=== PATIENT | male | born 1970 | race Caucasian/White ===

== ENCOUNTER 2022-07-13 06:27 | Emergency (ER) | payer OTHER ==
[~2022-07-13] VITALS: Ht 165.1 cm; Wt 67.0 kg
[2022-07-13] MEDS ORDERED: FLOMAX0.4 MG PO (12:55)
[2022-07-13] MEDS ORDERED: AZITHROMYCIN250 MG PO (12:56)
[2022-07-13] MEDS ORDERED: METFORMIN HCL500 MG PO (12:57)
== END 2022-07-13 12:45 | disposition left against medical advice (07) ==
LOC: ED 06:27
DX: R33.9 Retention of urine, unspecified (principal); F15.10 Other stimulant abuse, uncomplicated; J18.9 Pneumonia, unspecified organism; E11.65 Type 2 diabetes mellitus with hyperglycemia; I10 Essential (primary) hypertension
CPT/HCPCS: 36415; 74177; 80053; 81001; 82803; 83690; 85025; 96361; 99284-25; J1815; J7030; J7121; Q9967

== ENCOUNTER 2022-07-23 11:22 | Inpatient (IN) | payer OTHER ==
[~2022-07-23] VITALS: Ht 165.1 cm; Wt 67.4 kg
[~2022-07-23 11:22] MED LIST: AZITHROMYCIN250 MG PO; FLOMAX0.4 MG PO; METFORMIN HCL500 MG PO
--- OUTSIDE RECORDS SUMMARY | 2022-07-23 11:30 | XMS ---
PreManage Notification: TIGIST SMITH Security Reading Professor Events No recent Security Events currently on file CRITERIA MET - [facility] - 2 Visits in 30 Days CARE PROVIDERS -, Aldair Quinones DMD Dentist: Fashion Designer Current PHONE: [phone] Adalberto Bacon MD Family Medicine Current PHONE: Unknown SHASHI WALSH Family Medicine Current PHONE: Unknown Care Guidelines exist for the following facilities: [facility] ( 11/12/2018 ) Care History Medical/Surgical 04/06/2016 [facility] Care Coordination: This patient has been identified as having at least5 Emergency Departments visits in the 12 months immediately preceding the date these guidelines were entered. Patient requires education on appropriate ED usage. Emphasize the importance of using outpatient medical services for the treatment of chronic conditions. Please contact Community Health WorkerEarnestine at [phone] if patient is seen in ED These are guidelines and the provider should exercise clinical judgment when providing care. E.D. VISIT COUNT (12 MO.) [address] [facility] T[facility] NOTE: Visits indicate total known visits. ED/UCC VISIT TRACKING (12 MO.) 07/23/2022 11:23 [facility] [place] TYPE: Emergency COMPLAINT: - SOB / RT SIDE PAIN 07/13/2022 06:28 [facility] [place] TYPE: Emergency COMPLAINT: - SOB, ABD PAIN, FLANKS PAIN, URINATION PROBLEM DIAGNOSES: - Type 2 diabetes mellitus with hyperglycemia - Unspecified abdominal pain - Other stimulant abuse, uncomplicated - Pneumonia, unspecified organism - Retention of urine, unspecified - Essential (primary) hypertension 03/23/2022 17:51 [facility] [place] TYPE: Emergency DIAGNOSES: - Essential (primary) hypertension - Chest pain, unspecified - Hyperglycemia, unspecified - chest pain INPATIENT VISIT TRACKING (12 MO.) No inpatient visits to display in this time frame [email or web address]
[2022-07-26] MEDS ORDERED: LEVOFLOXACIN750 MG PO (12:03)
[2022-07-26] MEDS ORDERED: CEFPODOXIME PR200 MG PO (12:03)
[2022-07-26] MEDS ORDERED: METFORMIN HCL500 MG PO (12:04)
[2022-07-26] MEDS ORDERED: INSULIN GL100 UNIT/1 SUB-Q (12:05)
[2022-07-26] MEDS ORDERED: HUMALOG100 UNITS/ SUB-Q (12:05)
[2022-07-26] MEDS ORDERED: VITAMIN D325 MCG PO (12:07)
[2022-07-26] MEDS ORDERED: BLOOD GLUCOSE1 EAC5 MISC (12:59)
[2022-07-26] MEDS ORDERED: TEST N'GO1 EACH MISC (12:59)
[2022-07-26] MEDS ORDERED: LANCETS1 EACH MISC (12:59)
[2022-07-26] MEDS ORDERED: INSULIN SYRING1 EA27 MISC (13:00)
--- NOTE | 2022-07-26 18:58 | EKG ---
[facility] [address] [place] [address] Signed Sinus tachycardia Otherwise normal ECG No previous ECGs available Confirmed by Moy Moscoso MD () on 07/26/2022 6:57:54 PM Electronically Signed By: MOY MOSCOSO MD 07/26/22 1858 PATIENT NAME: TIGIST SMITH KRISTIE Electrocardiogram DATE OF : 68 PHYSICIAN: MOY MOSCOSO MD REPORT #: [id number] REPORT IS CONFIDENTIAL AND NOT TO BE RELEASED WITHOUT AUTHORIZATION
== END 2022-07-26 13:50 | disposition home or self-care (01) | DRG 871 ==
LOC: ED 11:22 → MS 13:11 → CCU 13:11 → MS 13:11
PROVIDERS: ADMIT Internal Medicine; ATTEND Family Medicine
PROC: 3E03329 Introduction of Other Anti-infective into Peripheral Vein, Percutaneous Approach (ICD-10-PCS; principal; 2022-07-23)
PROC: 0T9B70Z Drainage of Bladder with Drainage Device, Via Natural or Artificial Opening (ICD-10-PCS; 2022-07-23)
DX: A40.3 Sepsis due to Streptococcus pneumoniae (principal); J13 Pneumonia due to Streptococcus pneumoniae; F15.20 Other stimulant dependence, uncomplicated; I10 Essential (primary) hypertension; Z20.822 Contact with and (suspected) exposure to COVID-19; B19.20 Unspecified viral hepatitis C without hepatic coma; N40.1 Benign prostatic hyperplasia with lower urinary tract symptoms; R33.8 Other retention of urine; E11.40 Type 2 diabetes mellitus with diabetic neuropathy, unspecified; M79.7 Fibromyalgia; E11.65 Type 2 diabetes mellitus with hyperglycemia; R74.8 Abnormal levels of other serum enzymes; D50.9 Iron deficiency anemia, unspecified; E83.42 Hypomagnesemia; Z59.00 Homelessness unspecified; Z98.890 Other specified postprocedural states; Z79.84 Long term (current) use of oral hypoglycemic drugs; Z79.899 Other long term (current) drug therapy
CPT/HCPCS: 36415; 71045; 80048; 80053; 80061; 80076; 81001; 82306; 83036; 83605; 83690; 83735; 85025; 87040; 87070; 87205; 87449; 87502; 87522; 87899; 93005; 93010; 94667; 94668; 94760; 99406; A9270; C9803; J0696; J1650; J1815; J1956; J2250; J3475; J7030; J7121; U0003

== ENCOUNTER 2022-08-27 13:03 | Emergency (ER) | payer OTHER ==
[~2022-08-27] VITALS: Ht 165.1 cm; Wt 67.4 kg
[~2022-08-27 13:03] MED LIST changes: +BLOOD GLUCOSE1 EAC5 MISC; +CEFPODOXIME PR200 MG PO; +HUMALOG100 UNITS/ SUB-Q; +INSULIN GL100 UNIT/1 SUB-Q; +INSULIN SYRING1 EA27 MISC; +LANCETS1 EACH MISC; +LEVOFLOXACIN750 MG PO; +TEST N'GO1 EACH MISC; +VITAMIN D325 MCG PO
--- OUTSIDE RECORDS SUMMARY | 2022-08-27 13:11 | XMS ---
PreManage Notification: TIGIST SMITH Security Napkin Machine Operator Events No recent Security Events currently on file CRITERIA MET - [facility] - 2 Visits in 30 Days - 6 ED Visits in 6 Months CARE PROVIDERS -, Aldair Quinones DMD Dentist: Bumper And Painter Current PHONE: [phone] Adalberto Bacon MD Family Medicine Current PHONE: Unknown SHASHI WALSH Family Medicine Current PHONE: Unknown Care Guidelines exist for the following facilities: [facility] ( 11/12/2018 ) Care History Medical/Surgical 04/06/2016 [facility] Care Coordination: This patient has been identified as having at least5 Emergency Departments visits in the 12 months immediately preceding the date these guidelines were entered. Patient requires education on appropriate ED usage. Emphasize the importance of using outpatient medical services for the treatment of chronic conditions. Please contact Community Health WorkerEarnestine at [phone] if patient is seen in ED These are guidelines and the provider should exercise clinical judgment when providing care. E.D. VISIT COUNT (12 MO.) 3 [facility] T[facility] NOTE: Visits indicate total known visits. ED/UCC VISIT TRACKING (12 MO.) 08/27/2022 13:04 [facility] [place] TYPE: Emergency COMPLAINT: - CATHETER PROBLEM 08/18/2022 07:29 [facility] DIAGNOSES: - Unspecified complication of genitourinary prosthetic device, implant and graft, initial encounter - CATHETER PROBLEM ABD PAIN 08/04/2022 06:51 [facility] [place] TYPE: Emergency DIAGNOSES: - CATHETER PROBLEM - Breakdown (mechanical) of indwelling urethral catheter, initial encounter 07/23/2022 11:23 [facility] [place] TYPE: Emergency COMPLAINT: - SOB / RT SIDE PAIN 07/13/2022 06:28 [facility] [place] TYPE: Emergency COMPLAINT: - SOB, ABD PAIN, FLANKS PAIN, URINATION PROBLEM DIAGNOSES: - Unspecified abdominal pain - Other stimulant abuse, uncomplicated - Pneumonia, unspecified organism - Retention of urine, unspecified - Essential (primary) hypertension - Type 2 diabetes mellitus with hyperglycemia 03/23/2022 17:51 [facility] [place] TYPE: Emergency DIAGNOSES: - Chest pain, unspecified - Hyperglycemia, unspecified - chest pain - Essential (primary) hypertension INPATIENT VISIT TRACKING (12 MO.) 07/23/2022 13:11 [facility] [place] TYPE: Medical Surgical COMPLAINT: - SEPSIS/PNA DIAGNOSES: - Fibromyalgia - Unspecified viral hepatitis C without hepatic coma - Benign prostatic hyperplasia with lower urinary tract symptoms - Other retention of urine - Unspecified viral hepatitis C without hepatic coma - Sepsis due to Streptococcus pneumoniae - Other jail (current) drug therapy - Benign prostatic hyperplasia with lower urinary tract symptoms - Contact with and (suspected) exposure to COVID-19 - Essential (primary) hypertension - Other stimulant dependence, uncomplicated - Other retention of urine - Type 2 diabetes mellitus with hyperglycemia - Other specified postprocedural states - Type 2 diabetes mellitus with hyperglycemia - Other jail (current) drug therapy - Type 2 diabetes mellitus with diabetic neuropathy, unspecified - Homelessness unspecified - terminal operator (current) use of oral hypoglycemic drugs - Sepsis, unspecified organism - terminal operator (current) use of oral hypoglycemic drugs - Type 2 diabetes mellitus with diabetic neuropathy, unspecified - Other specified postprocedural states - Hypomagnesemia - Pneumonia due to Streptococcus pneumoniae - Hypomagnesemia - Iron deficiency anemia, unspecified - Abnormal levels of other serum enzymes - Iron deficiency anemia, unspecified - Pneumonia due to Streptococcus pneumoniae - Abnormal levels of other serum enzymes - Sepsis due to Streptococcus pneumoniae - Fibromyalgia - Homelessness unspecified - Contact with and (suspected) exposure to COVID-19 - Other stimulant dependence, uncomplicated - Essential (primary) hypertension [email or web address]
[2022-08-27 14:27] VITALS: BP 123/86
== END 2022-08-27 14:25 | disposition home or self-care (01) ==
LOC: ED 13:03
DX: E11.65 Type 2 diabetes mellitus with hyperglycemia (principal); I10 Essential (primary) hypertension; Z79.899 Other long term (current) drug therapy; Z79.4 Long term (current) use of insulin
CPT/HCPCS: 36415; 71045; 80053; 81001; 85025

== ENCOUNTER 2022-09-03 17:35 | Emergency (ER) | payer OTHER ==
[~2022-09-03] VITALS: Ht 165.1 cm; Wt 67.4 kg
--- OUTSIDE RECORDS SUMMARY | 2022-09-03 17:42 | XMS ---
PreManage Notification: TIGIST SMITH Security Interpretative Dancer Events No recent Security Events currently on file CRITERIA MET - 6 ED Visits in 6 Months - [facility] - 2 Visits in 30 Days CARE PROVIDERS -Aldair DMD Dentist: Mba Intern Current PHONE: [phone] RASHID BARCENAS Physician Reading Professor Current PHONE: Unknown Adalberto Bacon MD Family Medicine Current PHONE: Unknown SHASHI WALSH Family Medicine Current PHONE: Unknown Care Guidelines exist for the following facilities: [facility] ( 11/12/2018 ) Care History Medical/Surgical 04/06/2016 [facility] Care Coordination: This patient has been identified as having at least5 Emergency Departments visits in the 12 months immediately preceding the date these guidelines were entered. Patient requires education on appropriate ED usage. Emphasize the importance of using outpatient medical services for the treatment of chronic conditions. Please contact Community Health WorkerEarnestine at [phone] if patient is seen in ED These are guidelines and the provider should exercise clinical judgment when providing care. E.D. VISIT COUNT (12 MO.) 3 [facility] 4 [facility] TOTAL 7 NOTE: Visits indicate total known visits. ED/UCC VISIT TRACKING (12 MO.) 09/03/2022 17:[address] [facility] [facility] [place] TYPE: Emergency COMPLAINT: - WEAKNESS 08/27/2022 13:04 [facility] [place] TYPE: Emergency COMPLAINT: - CATHETER PROBLEM DIAGNOSES: - Essential (primary) hypertension - mechanical car checker (current) use of insulin - Other snf (current) drug therapy - Shortness of breath - Type 2 diabetes mellitus with hyperglycemia 08/18/2022 07:29 [facility] [place] TYPE: Emergency DIAGNOSES: - Unspecified complication of genitourinary prosthetic device, implant and graft, initial encounter - CATHETER PROBLEM ABD PAIN 08/04/2022 06:51 [facility] [place] TYPE: Emergency DIAGNOSES: - Breakdown (mechanical) of indwelling urethral catheter, initial encounter - CATHETER PROBLEM 07/23/2022 11:23 [facility] [place] TYPE: Emergency COMPLAINT: - SOB / RT SIDE PAIN 07/13/2022 06:28 [facility] [place] TYPE: Emergency COMPLAINT: - SOB, ABD PAIN, FLANKS PAIN, URINATION PROBLEM DIAGNOSES: - Essential (primary) hypertension - Other stimulant abuse, uncomplicated - Pneumonia, unspecified organism - Retention of urine, unspecified - Type 2 diabetes mellitus with hyperglycemia - Unspecified abdominal pain 03/23/2022 17:51 [facility] [place] TYPE: Emergency DIAGNOSES: - Chest pain, unspecified - Essential (primary) hypertension - Hyperglycemia, unspecified - chest pain INPATIENT VISIT TRACKING (12 MO.) 07/23/2022 13:[address] [facility] [facility] [place] TYPE: Medical Surgical COMPLAINT: - SEPSIS/PNA DIAGNOSES: - Abnormal levels of other serum enzymes - Abnormal levels of other serum enzymes - Benign prostatic hyperplasia with lower urinary tract symptoms - Benign prostatic hyperplasia with lower urinary tract symptoms - Contact with and (suspected) exposure to COVID-19 - Contact with and (suspected) exposure to COVID-19 - Essential (primary) hypertension - Essential (primary) hypertension - Fibromyalgia - Fibromyalgia - Homelessness unspecified - Homelessness unspecified - Hypomagnesemia - Hypomagnesemia - Iron deficiency anemia, unspecified - Iron deficiency anemia, unspecified - intermediate (current) use of oral hypoglycemic drugs - mechanical car checker (current) use of oral hypoglycemic drugs - Other snf (current) drug therapy - Other snf (current) drug therapy - Other retention of urine - Other retention of urine - Other specified postprocedural states - Other specified postprocedural states - Other stimulant dependence, uncomplicated - Other stimulant dependence, uncomplicated - Pneumonia due to Streptococcus pneumoniae - Pneumonia due to Streptococcus pneumoniae - Sepsis due to Streptococcus pneumoniae - Sepsis due to Streptococcus pneumoniae - Sepsis, unspecified organism - Type 2 diabetes mellitus with diabetic neuropathy, unspecified - Type 2 diabetes mellitus with diabetic neuropathy, unspecified - Type 2 diabetes mellitus with hyperglycemia - Type 2 diabetes mellitus with hyperglycemia - Unspecified viral hepatitis C without hepatic coma - Unspecified viral hepatitis C without hepatic coma [email or web address]
[2022-09-03] MEDS ORDERED: CEPHALEXIN500 M1 PO (19:25)
[2022-09-03 20:30] VITALS: BP 122/82
== END 2022-09-03 20:49 | disposition home or self-care (01) ==
LOC: ED 17:35
DX: E86.0 Dehydration (principal); N39.0 Urinary tract infection, site not specified; F15.90 Other stimulant use, unspecified, uncomplicated; Z76.5 Malingerer [conscious simulation]; I10 Essential (primary) hypertension; E11.40 Type 2 diabetes mellitus with diabetic neuropathy, unspecified; Z79.899 Other long term (current) drug therapy; Z79.84 Long term (current) use of oral hypoglycemic drugs
CPT/HCPCS: 36415; 71045; 80053; 81001; 83690; 85025; J7030; J7121

== ENCOUNTER 2022-12-28 16:40 | Emergency (ER) | payer OTHER ==
[~2022-12-28] VITALS: Ht 165.1 cm; Wt 62.9 kg
--- OUTSIDE RECORDS SUMMARY | ~2022-12-28 | XMS | Continuity of Care Document ---
Demographics + + + | Address | [address] | | | [place] [address] | + + + | Preferred Language | Unknown | + + + | Marital Status | | + + + | Cheondoism Affiliation | Unknown | + + + | Race | White | + + + | Ethnic Group | Not or | + + + Author + + + | Author | [facility] | + + + | Organization | [facility] | + + + | Address | [address] | | | [place] [address] | + + + | Phone | | + + + Care Team Providers + + + + | Care Lead Quality Control Technician Name | Role | Phone | + + + + Unavailable | Unavailable | + + + + Unavailable | Unavailable | + + + + Unavailable | Unavailable | + + + + Allergies No information. Encounters No information. Functional Status No information. Immunizations No information. Medications + + + + | date | description | facility | + + + + | 2022-09-03 00:00 | CEPHALEXIN | [facility] | + + + + | 2022-07-26 00:00 | Cholecalciferol (Vitamin | [facility] | | | D3) | | + + + + | 2022-07-26 00:00 | Cholecalciferol (Vitamin | [facility] | | | D3) | | + + + + | 2022-07-26 00:00 | Insulin Glargine-Yfgn | [facility] | + + + + | 2022-07-26 00:00 | Insulin Glargine-Yfgn | [facility] | + + + + | 2022-07-13 00:00 | AZITHROMYCIN | [facility] | + + + + | 2022-07-26 00:00 | CEFPODOXIME PROXETIL | [facility] | + + + + | 2022-07-26 00:00 | CEFPODOXIME PROXETIL | [facility] | + + + + | 2022-07-26 00:00 | LEVOFLOXACIN | [facility] | + + + + | 2022-07-26 00:00 | LEVOFLOXACIN | [facility] | + + + + | 2022-07-13 00:00 | METFORMIN HCL | [facility] | + + + + | 2022-07-13 00:00 | METFORMIN HCL | [facility] | + + + + | 2022-07-26 00:00 | METFORMIN HCL | [facility] | + + + + | 2022-07-26 00:00 | METFORMIN HCL | [facility] | + + + + | 2022-07-13 00:00 | TAMSULOSIN HCL | [facility] | + + + + | 2022-07-13 00:00 | TAMSULOSIN HCL | [facility] | + + + + | 2022-07-26 00:00 | INSULIN HUMAN LISPRO | [facility] | + + + + | 2022-07-26 00:00 | INSULIN HUMAN LISPRO | [facility] | + + + + Problems + + + + | date | description | facility | + + + + | 2022-07-13 00:00 | Uncontrolled diabetes | [facility] | | | mellitus | | + + + + | 2022-07-13 00:00 | Uncontrolled diabetes | [facility] | | | mellitus | | + + + + | 2022-07-13 00:00 | Methamphetamine abuse | [facility] | + + + + | 2022-07-13 00:00 | Methamphetamine abuse | [facility] | + + + + | 2022-07-13 00:00 | Pneumonia | [facility] | + + + + | 2022-07-13 00:00 | Pneumonia | [facility] | + + + + | 2022-07-13 00:00 | Abdominal cramps | [facility] | + + + + | 2022-07-13 00:00 | Abdominal cramps | [facility] | + + + + | 2022-07-13 00:00 | Retention of urine | [facility] | + + + + | 2022-07-13 00:00 | Retention of urine | [facility] | + + + + | 2022-07-23 00:00 | Poorly controlled diabetes | [facility] | | | mellitus | | + + + + | 2022-07-23 00:00 | Poorly controlled diabetes | [facility] | | | mellitus | | + + + + | 2022-07-23 00:00 | Acute pneumonia | [facility] | + + + + | 2022-07-23 00:00 | Acute pneumonia | [facility] | + + + + | 2022-09-03 00:00 | Dehydration | [facility] | + + + + | 2022-09-03 00:00 | Urinary tract infection | [facility] | + + + + Procedures No information. Results/Labs +--------+--------+ +---------+--------+---------+ | test | date | facility | value | unit | notes | +--------+--------+ +---------+--------+---------+ + + | Result panel 1 | + + + + + + + + + | | 2022-07-13 | [facility] | YELLOW | (missing) | (missing) | | (unavailable | 06:38:08 [facility] | | | + + + + + + + + + | Result panel 2 | + + + + + +---------+ + + | | 2022-07-13 | [facility] | CLEAR | (missing) | (missing) | | (unavailable | 06:38:08 [facility] | | | | + + + +---------+ + + + + | Result panel 3 | + + + + + + + + + | | 2022-07-13 | [facility] | >=1000 | (missing) | (missing) | | (unavailable | 06:38:08 [facility] | | | | + + + + + + + + + | Result panel 4 | + + + + + + + + + | | 2022-07-13 | [facility] | NEGATIVE | (missing) | (missing) | | (unavailable | 06:38:08 [facility] | | | | + + + + + + + + + | Result panel 5 | + + + + + + + + + | | 2022-07-13 | [facility] | NEGATIVE | (missing) | (missing) | | (unavailable | 06:38:08 | [facility] | [facility] | | | | + + + + + + + + + | Result panel 6 | + + + + + +---------+ + + | | 2022-07-13 | [facility] | 1.010 | (missing) | (missing) | | (unavailable | 06:38:08 [facility] | | | | + + + +---------+ + + + + | Result panel 7 | + + + + + + + + + | | 2022-07-13 | [facility] | TRACE-I | (missing) | (missing) | | (unavailable | 06:38:08 [facility] | | | | + + + + + + + + + | Result panel 8 | + + + + + +-------+ + + | | 2022-07-13 | [facility] | 6.5 | (missing) | (missing) | | (unavailable | 06:38:08 [facility] | | | | + + + +-------+ + + + + | Result panel 9 | + + + + + +-------+ + + | | 2022-07-13 | [facility] | 100 | (missing) | (missing) | | (unavailable | 06:38:08 | [facility] | | | | + + + +-------+ + + + + | Result panel 10 | + + + + + + + + + | | 2022-07-13 | [facility] | NORMAL | (missing) | (missing) | | (unavailable | 06:38:08 | [facility] | | | | + + + + + + + + + | Result panel 11 | + + + + + + + + + | | 2022-07-13 | [facility] | NEGATIVE | (missing) | (missing) | | (unavailable | 06:38:08 | [facility] | | | | + + + + + + + + + | Result panel 12 | + + + + + + + + + | | 2022-07-13 | [facility] | NEGATIVE | (missing) | (missing) | | (unavailable | 06:38:08 [facility] | | | + + + + + + + + + | Result panel 13 | + + + + + +-------+ + + | | 2022-07-13 | [facility] | 0-1 | (missing) | (missing) | | (unavailable | 06:38:08 | [facility] | | | | + + + +-------+ + + + + | Result panel 14 | + + + + + +-------+ + + | | 2022-07-13 | [facility] | 0-1 | (missing) | (missing) | | (unavailable | 06:38:08 | [facility] | | | | + + + +-------+ + + + + | Result panel 15 | + + + + + +-----+ + + | | 2022-07-13 | [facility] | 0 | (missing) | (missing) | | (unavailable | 06:38:08 [facility] | | | | + + + +-----+ + + + + | Result panel 16 | + + + + + + + + + | | 2022-07-13 | [facility] | NONE SEEN | (missing) | (missing) | | (unavailable | 06:38:08 | [facility] | | | | + + + + + + + + + | Result panel 17 | + + + + + + + + + | | 2022-07-13 | [facility] | NONE SEEN | (missing) | (missing) | | (unavailable | 06:38:08 | [facility] | | | | + + + + + + + + + | Result panel 18 | + + + + + + + + + | | 2022-07-13 | [facility] | NONE SEEN | (missing) | (missing) | | (unavailable | 06:38:08 | [facility] | | | | + + + + + + + + + | Result panel 19 | + + + + + +------+ + + | | 2022-07-13 | [facility] | No | (missing) | (missing) | | (unavailable | 06:38:08 [facility] | | | | + + + +------+ + + + + | Result panel 20 | + + + + + + + + + | | 2022-07-13 | [facility] | CLEAN CATCH | (missing) | (missing) | | (unavailable | 06:38:08 | [facility] | | | | + + + + + + + + + | Result panel 21 | + + + + + +--------+ + + | | 2022-07-13 | [facility] | 14.5 | (missing) | (missing) | | (unavailable | 07:01:08 [facility] | | | + + + +--------+ + + + + | Result panel 22 | + + + + + +--------+ + + | | 2022-07-13 | [facility] | 4.04 | (missing) | (missing) | | (unavailable | 07:01:08 | [facility] | | | + + + +--------+ + + + + | Result panel 23 | + + + + + +--------+ + + | | 2022-07-13 | [facility] | 10.3 | (missing) | (missing) | | (unavailable | 07:01:08 | [facility] | | | | + + + +--------+ + + + + | Result panel 24 | + + + + + +--------+ + + | | 2022-07-13 | [facility] | 32.9 | (missing) | (missing) | | (unavailable | 07:01:08 | [facility] | | | + + + +--------+ + + + + | Result panel 25 | + + + + + +--------+ + + | | 2022-07-13 | [facility] | 81.4 | (missing) | (missing) | | (unavailable | 07:01:08 [facility] | | | + + + +--------+ + + + + | Result panel 26 | + + + + + +--------+ + + | | 2022-07-13 | [facility] | 25.6 | (missing) | (missing) | | (unavailable | 07:01:08 [facility] | | | + + + +--------+ + + + + | Result panel 27 | + + + + + +--------+ + + | | 2022-07-13 | [facility] | 31.5 | (missing) | (missing) | | (unavailable | 07:01:08 [facility] | | | + + + +--------+ + + + + | Result panel 28 | + + + + + +--------+ + + | | 2022-07-13 | [facility] | 15.2 | (missing) | (missing) | | (unavailable | 07:01:08 [facility] | | | + + + +--------+ + + + + | Result panel 29 | + + + + + +-------+ + + | | 2022-07-13 | [facility] | 341 | (missing) | (missing) | | (unavailable | 07:01:08 [facility] | | | + + + +-------+ + + + + | Result panel 30 | + + + + + +--------+ + + | | 2022-07-13 | [facility] | 80.4 | (missing) | (missing) | | (unavailable | 07:01:08 [facility] | | | + + + +--------+ + + + + | Result panel 31 | + + + + + +--------+ + + | | 2022-07-13 | [facility] | 10.6 | (missing) | (missing) | | (unavailable | 07:01:08 [facility] | | | + + + +--------+ + + + + | Result panel 32 | + + + + + +-------+ + + | | 2022-07-13 | [facility] | 7.5 | (missing) | (missing) | | (unavailable | 07:01:08 [facility] | | | + + + +-------+ + + + + | Result panel 33 | + + + + + +-------+ + + | | 2022-07-13 | [facility] | 0.8 | (missing) | (missing) | | (unavailable | 07:01:08 [facility] | | | + + + +-------+ + + + + | Result panel 34 | + + + + + +-------+ + + | | 2022-07-13 | [facility] | 0.7 | (missing) | (missing) | | (unavailable | 07:01:08 [facility] | | | + + + +-------+ + + + + | Result panel 35 | + + + + + +-------+---------+ + | | 2022-07-13 | [facility] | 751 | mg/dL | (missing) | | (unavailable | 07:01:08 [facility] | | | | + + + +-------+---------+ + + + | Result panel 36 | + + + + + +------+---------+ + | | 2022-07-13 | [facility] | 32 | mg/dL | (missing) | | (unavailable | 07:01:08 [facility] | | | + + + +------+---------+ + + + | Result panel 37 | + + + + + +--------+---------+ + | | 2022-07-13 | [facility] | 1.58 | mg/dL | (missing) | | (unavailable | 07:01:08 [facility] | | | + + + +--------+---------+ + + + | Result panel 38 | + + + + + +------+ + + | | 2022-07-13 | [facility] | 52 | (missing) | (missing) | | (unavailable | 07:01:08 [facility] | | | + + + +------+ + + + + | Result panel 39 | + + + + + +---------+ + + | | 2022-07-13 | [facility] | 20.25 | (missing) | (missing) | | (unavailable | 07:01:08 [facility] | | | + + + +---------+ + + + + | Result panel 40 | + + + + + +-------+ + + | | 2022-07-13 | [facility] | 126 | (missing) | (missing) | | (unavailable | 07:01:08 [facility] | | | + + + +-------+ + + + + | Result panel 41 | + + + + + +-------+ + + | | 2022-07-13 | [facility] | 4.7 | (missing) | (missing) | | (unavailable | 07:01:08 | [facility] | | | + + + +-------+ + + + + | Result panel 42 | + + + + + +------+ + + | | 2022-07-13 | [facility] | 90 | (missing) | (missing) | | (unavailable | 07:01:08 [facility] | | | + + + +------+ + + + + | Result panel 43 | + + + + + +------+ + + | | 2022-07-13 | [facility] | 29 | (missing) | (missing) | | (unavailable | 07:01:08 [facility] | | | + + + +------+ + + + + | Result panel 44 | + + + + + +--------+ + + | | 2022-07-13 | [facility] | 11.7 | (missing) | (missing) | | (unavailable | 07:01:08 [facility] | | | + + + +--------+ + + + + | Result panel 45 | + + + + + +-------+---------+ + | | 2022-07-13 | [facility] | 9.2 | mg/dL | (missing) | | (unavailable | 07:01:08 [facility] | | | + + + +-------+---------+ + + + | Result panel 46 | + + + + + +-------+ + + | | 2022-07-13 | [facility] | 8.2 | (missing) | (missing) | | (unavailable | 07:01:08 [facility] | | | + + + +-------+ + + + + | Result panel 47 | + + + + + +-------+ + + | | 2022-07-13 | [facility] | 2.2 | (missing) | (missing) | | (unavailable | 07:01:08 [facility] | | | + + + +-------+ + + + + | Result panel 48 | + + + + + +-------+ + + | | 2022-07-13 | [facility] | 6.0 | (missing) | (missing) | | (unavailable | 07:01:08 [facility] | | | + + + +-------+ + + + + | Result panel 49 | + + + + + +--------+ + + | | 2022-07-13 | [facility] | 0.37 | (missing) | (missing) | | (unavailable | 07:01:08 [facility] | | | + + + +--------+ + + + + | Result panel 50 | + + + + + +-------+ + + | | 2022-07-13 | [facility] | 0.3 | (missing) | (missing) | | (unavailable | 07:01:08 [facility] | | | + + + +-------+ + + + + | Result panel 51 | + + + + + +------+ + + | | 2022-07-13 | [facility] | 16 | (missing) | (missing) | | (unavailable | 07:01:08 [facility] | | | + + + +------+ + + + + | Result panel 52 | + + + + + +------+ + + | | 2022-07-13 | [facility] | 20 | (missing) | (missing) | | (unavailable | 07:01:08 [facility] | | | + + + +------+ + + + + | Result panel 53 | + + + + + +-------+ + + | | 2022-07-13 | [facility] | 187 | (missing) | (missing) | | (unavailable | 07:01:08 [facility] | | | + + + +-------+ + + + + | Result panel 54 | + + + + + +-------+ + + | | 2022-07-13 | [facility] | 414 | (missing) | (missing) | | (unavailable | 07:01:08 [facility] | | | + + + +-------+ + + + + | Result panel 55 | + + + + + +---------+ + + | | 2022-07-13 | [facility] | 7.389 | (missing) | (missing) | | (unavailable | 07:34:07 [facility] | | | | + + + +---------+ + + + + | Result panel 56 | + + + + + +---------+ + + | | 2022-07-13 | [facility] | 7.389 | (missing) | (missing) | | (unavailable | 07:34:08 [facility] | | | + + + +---------+ + + + + | Result panel 57 | + + + + + +---------+ + + | | 2022-07-13 | [facility] | > 500 | (missing) | (missing) | | (unavailable | 10:11:08 | [facility] | | | + + + +---------+ + + + + | Result panel 58 | + + + + + +-------+ + + | | 2022-07-23 | [facility] | 414 | (missing) | (missing) | | (unavailable | 11:30:07 [facility] | | | | + + + +-------+ + + + + | Result panel 59 | + + + + + +-------+ + + | | 2022-07-23 | [facility] | 0.7 | (missing) | (missing) | | (unavailable | 11:30:07 [facility] | | | + + + +-------+ + + + + | Result panel 60 | + + + + + +--------+ + + | | 2022-07-23 | [facility] | 13.8 | (missing) | (missing) | | (unavailable | 11:30:07 [facility] | | | + + + +--------+ + + + + | Result panel 61 | + + + + + + + + + | | 2022-07-23 | [facility] | NEGATIVE | (missing) | (missing) | | (unavailable | 11:32:07 [facility] | | | + + + + + + + + + | Result panel 62 | + + + + + + + + + | | 2022-07-23 | [facility] | NEGATIVE | (missing) | (missing) | | (unavailable | 11:32:07 [facility] | | | + + + + + + + + + | Result panel 63 | + + + + + + + + + | | 2022-07-23 | [facility] | NEGATIVE | (missing) | (missing) | | (unavailable | 11:32:07 [facility] | | | + + + + + + + + + | Result panel 64 | + + + + + + + + + | | 2022-07-23 | [facility] | NEGATIVE | (missing) | (missing) | | (unavailable | 11:32:07 [facility] | | | + + + + + + + + + | Result panel 65 | + + + + + + + + + | | 2022-07-23 | [facility] | YELLOW | (missing) | (missing) | | (unavailable | 11:50:07 [facility] | | | + + + + + + + + + | Result panel 66 | + + + + + + + + + | | 2022-07-23 | [facility] | CLOUDY | (missing) | (missing) | | (unavailable | 11:50:07 [facility] | | | + + + + + + + + + | Result panel 67 | + + + + + + + + + | | 2022-07-23 | [facility] | >=1000 | (missing) | (missing) | | (unavailable | 11:50:07 [facility] | | | + + + + + + + + + | Result panel 68 | + + + + + + + + + | | 2022-07-23 | [facility] | NEGATIVE | (missing) | (missing) | | (unavailable | 11:50:07 [facility] | | | + + + + + + + + + | Result panel 69 | + + + + + + + + + | | 2022-07-23 | [facility] | NEGATIVE | (missing) | (missing) | | (unavailable | 11:50:07 [facility] | | | + + + + + + + + + | Result panel 70 | + + + + + +---------+ + + | | 2022-07-23 | [facility] | 1.010 | (missing) | (missing) | | (unavailable | 11:50:07 [facility] | | | + + + +---------+ + + + + | Result panel 71 | + + + + + +---------+ + + | | 2022-07-23 | [facility] | SMALL | (missing) | (missing) | | (unavailable | 11:50:07 [facility] | | | | + + + +---------+ + + + + | Result panel 72 | + + + + + +-------+ + + | | 2022-07-23 | [facility] | 7.0 | (missing) | (missing) | | (unavailable | 11:50:07 [facility] | | | + + + +-------+ + + + + | Result panel 73 | + + + + + +-------+ + + | | 2022-07-23 | [facility] | 100 | (missing) | (missing) | | (unavailable | 11:50:07 [facility] | | | + + + +-------+ + + + + | Result panel 74 | + + + + + + + + + | | 2022-07-23 | [facility] | NORMAL | (missing) | (missing) | | (unavailable | 11:50:07 [facility] | | | + + + + + + + + + | Result panel 75 | + + + + + + + + + | | 2022-07-23 | [facility] | NEGATIVE | (missing) | (missing) | | (unavailable | 11:50:07 [facility] | | | + + + + + + + + + | Result panel 76 | + + + + + + + + + | | 2022-07-23 | [facility] | NEGATIVE | (missing) | (missing) | | (unavailable | 11:50:07 [facility] | | | + + + + + + + + + | Result panel 77 | + + + + + +-------+ + + | | 2022-07-23 | [facility] | 0-1 | (missing) | (missing) | | (unavailable | 11:50:07 [facility] | | | + + + +-------+ + + + + | Result panel 78 | + + + + + +-------+ + + | | 2022-07-23 | [facility] | 0-1 | (missing) | (missing) | | (unavailable | 11:50:07 [facility] | | | + + + +-------+ + + + + | Result panel 79 | + + + + + +-----+ + + | | 2022-07-23 | [facility] | 0 | (missing) | (missing) | | (unavailable | 11:50:07 [facility] | | | + + + +-----+ + + + + | Result panel 80 | + + + + + + + + + | | 2022-07-23 | [facility] | NONE SEEN | (missing) | (missing) | | (unavailable | 11:50:07 [facility] | | | + + + + + + + + + | Result panel 81 | + + + + + +--------+ + + | | 2022-07-23 | [facility] | RARE | (missing) | (missing) | | (unavailable | 11:50:07 [facility] | | | + + + +--------+ + + + + | Result panel 82 | + + + + + + + + + | | 2022-07-23 | [facility] | NONE SEEN | (missing) | (missing) | | (unavailable | 11:50:07 [facility] | | | + + + + + + + + + | Result panel 83 | + + + + + +------+ + + | | 2022-07-23 | [facility] | No | (missing) | (missing) | | (unavailable | 11:50:07 [facility] | | | + + + +------+ + + + + | Result panel 84 | + + + + + +--------+ + + | | 2022-07-23 | [facility] | CATH | (missing) | (missing) | | (unavailable | 11:50:07 [facility] | | | + + + +--------+ + + + + | Result panel 85 | + + + + + + + + + | | 2022-07-23 | [facility] | Negative | (missing) | (missing) | | (unavailable | 11:50:07 [facility] | | | + + + + + + + + + | Result panel 86 | + + + + + + + + + | | 2022-07-23 | [facility] | Negative | (missing) | (missing) | | (unavailable | 11:50:07 [facility] | | | + + + + + + + + + | Result panel 87 | + + + + + +-----+ + + | | 2022-07-24 | [facility] | 1 | (missing) | (missing) | | (unavailable | 05:07:07 [facility] | | | | + + + +-----+ + + + + | Result panel 88 | + + + + + +-----+ + + | | 2022-07-24 | [facility] | 1 | (missing) | (missing) | | (unavailable | 05:07:07 | [facility] | | | | + + + +-----+ + + + + | Result panel 89 | + + + + + +-------+---------+ + | | 2022-07-24 | [facility] | 112 | mg/dL | (missing) | | (unavailable | 05:07:07 | [facility] | | | | + + + +-------+---------+ + + + | Result panel 90 | + + + + + +------+ + + | | 2022-07-24 | [facility] | 49 | (missing) | (missing) | | (unavailable | 05:07:07 | [facility] | | | | + + + +------+ + + + + | Result panel 91 | + + + + + +---------+ + + | | 2022-07-24 | [facility] | 63.00 | (missing) | (missing) | | (unavailable | 05:07:07 | [facility] | | | | + + + +---------+ + + + + | Result panel 92 | + + + + + +------+---------+ + | | 2022-07-24 | [facility] | 53 | mg/dL | (missing) | | (unavailable | 05:07:07 | [facility] | | | | + + + +------+---------+ + + + | Result panel 93 | + + + + + +-------+ + + | | 2022-07-24 | [facility] | 2.3 | (missing) | (missing) | | (unavailable | 05:07:07 | [facility] | | | | + + + +-------+ + + + + | Result panel 94 | + + + + + +-----+ + + | | 2022-07-24 | [facility] | 9 | (missing) | (missing) | | (unavailable | 05:07:07 | [facility] | | | | + + + +-----+ + + + + | Result panel 95 | + + + + + +------+ + + | | 2022-07-24 | [facility] | 48 | (missing) | (missing) | | (unavailable | 05:07:07 | [facility] | | | | + + + +------+ + + + + | Result panel 96 | + + + + + +------+ + + | | 2022-07-24 | [facility] | 12 | (missing) | (missing) | | (unavailable | 05:07:07 | [facility] | | | | + + + +------+ + + + + | Result panel 97 | + + + + + + + + + | | 2022-07-24 | [facility] | Negative | (missing) | (missing) | | (unavailable | 05:07:07 | [facility] | | | | + + + + + + + + + | Result panel 98 | + + + + + + + + + | | 2022-07-24 | [facility] | Not | (missing) | (missing) | | (unavailable | 05:07:07 | [facility] | Detected | | | | ) | | [facility] | | | | + + + + + + + + + | Result panel 99 | + + + + + + + + + | | 2022-07-24 | [facility] | Not | (missing) | (missing) | | (unavailable | 05:07:07 | [facility] Detected [facility] ) | | [facility] | | | | + + + + + + + + + | Result panel 100 | + + + + + + + + + | | 2022-07-24 | [facility] | Not | (missing) | (missing) | | (unavailable | 05:07:07 | [facility] Detected | [facility] | ) | | [facility] | | | | + + + + + + + + + | Result panel 101 | + + + + + +------+ + + | | 2022-07-25 | [facility] | 84 | (missing) | (missing) | | (unavailable | 05:19:07 | [facility] | | | | + + + +------+ + + + + | Result panel 102 | + + + + + +------+ + + | | 2022-07-25 | [facility] | 10 | (missing) | (missing) | | (unavailable | 05:19:07 | [facility] | | | | + + + +------+ + + + + | Result panel 103 | + + + + + +-----+ + + | | 2022-07-25 | [facility] | 4 | (missing) | (missing) | | (unavailable | 05:19:07 | [facility] | | | | [facility] | | | | + + + +-----+ + + + + | Result panel 104 | + + + + + +-----+ + + | | 2022-07-25 | [facility] | 2 | (missing) | (missing) | | (unavailable | 05:19:07 | [facility] | | | | + + + +-----+ + + + + | Result panel 105 | + + + + + +--------+ + + | | 2022-07-26 | [facility] | 15.3 | (missing) | (missing) | | (unavailable | 05:14:07 | [facility] | | | | + + + +--------+ + + + + | Result panel 106 | + + + + + +--------+ + + | | 2022-07-26 | [facility] | 3.78 | (missing) | (missing) | | (unavailable | 05:14:07 | [facility] | | | | + + + +--------+ + + + + | Result panel 107 | + + + + + +-------+ + + | | 2022-07-26 | [facility] | 9.6 | (missing) | (missing) | | (unavailable | 05:14:07 | [facility] | | | | + + + +-------+ + + + + | Result panel 108 | + + + + + +--------+ + + | | 2022-07-26 | [facility] | 30.1 | (missing) | (missing) | | (unavailable | 05:14:07 | [facility] | | | | + + + +--------+ + + + + | Result panel 109 | + + + + + +--------+ + + | | 2022-07-26 | [facility] | 79.6 | (missing) | (missing) | | (unavailable | 05:14:07 | [facility] | | | + + + +--------+ + + + + | Result panel 110 | + + + + + +--------+ + + | | 2022-07-26 | [facility] | 25.3 | (missing) | (missing) | | (unavailable | 05:14:07 | [facility] | | | | + + + +--------+ + + + + | Result panel 111 | + + + + + +--------+ + + | | 2022-07-26 | [facility] | 31.8 | (missing) | (missing) | | (unavailable | 05:14:07 | [facility] | | | | + + + +--------+ + + + + | Result panel 112 | + + + + + +--------+ + + | | 2022-07-26 | [facility] | 15.6 | (missing) | (missing) | | (unavailable | 05:14:07 | [facility] | | | + + + +--------+ + + + + | Result panel 113 | + + + + + +-------+ + + | | 2022-07-26 | [facility] | 272 | (missing) | (missing) | | (unavailable | 05:14:07 | [facility] | | | | + + + +-------+ + + + + | Result panel 114 | + + + + + +--------+ + + | | 2022-07-26 | [facility] | 76.9 | (missing) | (missing) | | (unavailable | 05:14:07 | [facility] | | | | + + + +--------+ + + + + | Result panel 115 | + + + + + +--------+ + + | | 2022-07-26 | [facility] | 14.9 | (missing) | (missing) | | (unavailable | 05:14:07 | [facility] | | | + + + +--------+ + + + + | Result panel 116 | + + + + + +-------+ + + | | 2022-07-26 | [facility] | 7.0 | (missing) | (missing) | | (unavailable | 05:14:07 | [facility] | | | + + + +-------+ + + + + | Result panel 117 | + + + + + +-------+ + + | | 2022-07-26 | [facility] | 1.0 | (missing) | (missing) | | (unavailable | 05:14:07 | [facility] | | | | + + + +-------+ + + + + | Result panel 118 | + + + + + +-------+ + + | | 2022-07-26 | [facility] | 0.2 | (missing) | (missing) | | (unavailable | 05:14:07 | [facility] | | | | + + + +-------+ + + + + | Result panel 119 | + + + + + +-------+---------+ + | | 2022-07-26 | [facility] | 116 | mg/dL | (missing) | | (unavailable | 05:14:07 | [facility] | | | | + + + +-------+---------+ + + + | Result panel 120 | + + + + + +------+---------+ + | | 2022-07-26 | [facility] | 21 | mg/dL | (missing) | | (unavailable | 05:14:07 | [facility] | | | | + + + +------+---------+ + + + | Result panel 121 | + + + + + +--------+---------+ + | | 2022-07-26 | [facility] | 1.00 | mg/dL | (missing) | | (unavailable | 05:14:07 | [facility] | | | | + + + +--------+---------+ + + + | Result panel 122 | + + + + + +------+ + + | | 2022-07-26 | [facility] | 91 | (missing) | (missing) | | (unavailable | 05:14:07 | [facility] | | | | + + + +------+ + + + + | Result panel 123 | + + + + + +---------+ + + | | 2022-07-26 | [facility] | 21.00 | (missing) | (missing) | | (unavailable | 05:14:07 | [facility] | | | | + + + +---------+ + + + + | Result panel 124 | + + + + + +-------+ + + | | 2022-07-26 | [facility] | 134 | (missing) | (missing) | | (unavailable | 05:14:07 | [facility] | | | | + + + +-------+ + + + + | Result panel 125 | + + + + + +-------+ + + | | 2022-07-26 | [facility] | 4.1 | (missing) | (missing) | | (unavailable | 05:14:07 | [facility] | | | | + + + +-------+ + + + + | Result panel 126 | + + + + + +-------+ + + | | 2022-07-26 | [facility] | 101 | (missing) | (missing) | | (unavailable | 05:14:07 | [facility] | | | | + + + +-------+ + + + + | Result panel 127 | + + + + + +------+ + + | | 2022-07-26 | [facility] | 25 | (missing) | (missing) | | (unavailable | 05:14:07 | [facility] | | | | + + + +------+ + + + + | Result panel 128 | + + + + + +--------+ + + | | 2022-07-26 | [facility] | 12.1 | (missing) | (missing) | | (unavailable | 05:14:07 | [facility] | | | | + + + +--------+ + + + + | Result panel 129 | + + + + + +-------+---------+ + | | 2022-07-26 | [facility] | 9.0 | mg/dL | (missing) | | (unavailable | 05:14:07 | [facility] | | | | + + + +-------+---------+ + + + | Result panel 130 | + + + + + +-------+---------+ + | | 2022-07-26 | [facility] | 1.7 | mg/dL | (missing) | | (unavailable | 05:14:07 | [facility] | | | | + + + +-------+---------+ + + + | Result panel 131 | + + + + + +-------+ + + | | 2022-07-26 | [facility] | 7.3 | (missing) | (missing) | | (unavailable | 05:14:07 | [facility] | | | | + + + +-------+ + + + + | Result panel 132 | + + + + + +-------+ + + | | 2022-07-26 | [facility] | 1.4 | (missing) | (missing) | | (unavailable | 05:14:07 | [facility] | | | | + + + +-------+ + + + + | Result panel 133 | + + + + + +-------+ + + | | 2022-07-26 | [facility] | 5.9 | (missing) | (missing) | | (unavailable | 05:14:07 | [facility] | | | | + + + +-------+ + + + + | Result panel 134 | + + + + + +--------+ + + | | 2022-07-26 | [facility] | 0.24 | (missing) | (missing) | | (unavailable | 05:14:07 | [facility] | | | | + + + +--------+ + + + + | Result panel 135 | + + + + + +-------+ + + | | 2022-07-26 | [facility] | 0.2 | (missing) | (missing) | | (unavailable | 05:14:07 | [facility] | | | | + + + +-------+ + + + + | Result panel 136 | + + + + + +-------+---------+ + | | 2022-07-26 | [facility] | 0.1 | mg/dL | (missing) | | (unavailable | 05:14:07 | [facility] | | | | + + + +-------+---------+ + + + | Result panel 137 | + + + + + +-------+ + + | | 2022-07-26 | [facility] | 0.1 | (missing) | (missing) | | (unavailable | 05:14:07 | [facility] | | | | + + + +-------+ + + + + | Result panel 138 | + + + + + +------+ + + | | 2022-07-26 | [facility] | 32 | (missing) | (missing) | | (unavailable | 05:14:07 | [facility] | | | | + + + +------+ + + + + | Result panel 139 | + + + + + +------+ + + | | 2022-07-26 | [facility] | 29 | (missing) | (missing) | | (unavailable | 05:14:07 | [facility] | | | | + + + +------+ + + + + | Result panel 140 | + + + + + +-------+ + + | | 2022-07-26 | [facility] | 275 | (missing) | (missing) | | (unavailable | 05:14:07 | [facility] | | | | + + + +-------+ + + + + | Result panel 141 | + + + + + +-------+ + + | | 2022-07-26 | [facility] | 120 | (missing) | (missing) | | (unavailable | 11:34:07 | [facility] | | | | + + + +-------+ + + + + | Result panel 142 | + + + + + +-------+ + + | | 2022-08-27 | [facility] | 8.6 | (missing) | (missing) | | (unavailable | 13:30:07 | [facility] | | | | + + + +-------+ + + + + | Result panel 143 | + + + + + +-------+ + + | | 2022-08-27 | [facility] | 1.8 | (missing) | (missing) | | (unavailable | 13:30:07 | [facility] | | | | + + + +-------+ + + + + | Result panel 144 | + + + + + +-------+ + + | | 2022-08-27 | [facility] | 6.8 | (missing) | (missing) | | (unavailable | 13:30:07 | [facility] | | | + + + +-------+ + + + + | Result panel 145 | + + + + + +--------+ + + | | 2022-08-27 | [facility] | 0.26 | (missing) | (missing) | | (unavailable | 13:30:07 | [facility] | | | + + + +--------+ + + + + | Result panel 146 | + + + + + +-------+ + + | | 2022-08-27 | [facility] | 0.2 | (missing) | (missing) | | (unavailable | 13:30:07 | [facility] | | | + + + +-------+ + + + + | Result panel 147 | + + + + + +------+ + + | | 2022-08-27 | [facility] | 13 | (missing) | (missing) | | (unavailable | 13:30:07 | [facility] | | | | + + + +------+ + + + + | Result panel 148 | + + + + + +------+ + + | | 2022-08-27 | [facility] | 20 | (missing) | (missing) | | (unavailable | 13:30:07 | [facility] | | | | + + + +------+ + + + + | Result panel 149 | + + + + + +-------+ + + | | 2022-08-27 | [facility] | 206 | (missing) | (missing) | | (unavailable | 13:30:07 | [facility] | | | + + + +-------+ + + + + | Result panel 150 | + + + + + +--------+ + + | | 2022-08-27 | [facility] | 11.7 | (missing) | (missing) | | (unavailable | 13:30:07 | [facility] | | | + + + +--------+ + + + + | Result panel 151 | + + + + + +--------+ + + | | 2022-08-27 | [facility] | 4.33 | (missing) | (missing) | | (unavailable | 13:30:07 | [facility] | | | + + + +--------+ + + + + | Result panel 152 | + + + + + +--------+ + + | | 2022-08-27 | [facility] | 10.6 | (missing) | (missing) | | (unavailable | 13:30:07 | [facility] | | | + + + +--------+ + + + + | Result panel 153 | + + + + + +--------+ + + | | 2022-08-27 | [facility] | 33.7 | (missing) | (missing) | | (unavailable | 13:30:07 | [facility] | | | + + + +--------+ + + + + | Result panel 154 | + + + + + +--------+ + + | | 2022-08-27 | [facility] | 77.8 | (missing) | (missing) | | (unavailable | 13:30:07 | [facility] | | | + + + +--------+ + + + + | Result panel 155 | + + + + + +--------+ + + | | 2022-08-27 | [facility] | 24.5 | (missing) | (missing) | | (unavailable | 13:30:07 [facility] | | | + + + +--------+ + + + + | Result panel 156 | + + + + + +--------+ + + | | 2022-08-27 | [facility] | 31.4 | (missing) | (missing) | | (unavailable | 13[facility]30:07 [facility] | | | + + + +--------+ + + + + | Result panel 157 | + + + + + +--------+ + + | | 2022-08-27 | [facility] | 16.3 | (missing) | (missing) | | (unavailable | 13:30:07 | [facility] | | | + + + +--------+ + + + + | Result panel 158 | + + + + + +-------+ + + | | 2022-08-27 | [facility] | 270 | (missing) | (missing) | | (unavailable | 13:30:07 | [facility] | | | + + + +-------+ + + + + | Result panel 159 | + + + + + +--------+ + + | | 2022-08-27 | [facility] | 77.5 | (missing) | (missing) | | (unavailable | 13:30:07 | [facility] | | | + + + +--------+ + + + + | Result panel 160 | + + + + + +--------+ + + | | 2022-08-27 | [facility] | 16.3 | (missing) | (missing) | | (unavailable | 13:30:07 | [facility] | | | + + + +--------+ + + + + | Result panel 161 | + + + + + +-------+ + + | | 2022-08-27 | [facility] | 4.9 | (missing) | (missing) | | (unavailable | 13:30:07 | [facility] | | | + + + +-------+ + + + + | Result panel 162 | + + + + + +-------+ + + | | 2022-08-27 | [facility] | 0.6 | (missing) | (missing) | | (unavailable | 13:30:07 | [facility] | | | | + + + +-------+ + + + + | Result panel 163 | + + + + + +-------+ + + | | 2022-08-27 | [facility] | 0.7 | (missing) | (missing) | | (unavailable | 13:30:07 [facility] | | | + + + +-------+ + + + + | Result panel 164 | + + + + + + + + + | | 2022-08-27 | [facility] | YELLOW | (missing) | (missing) | | (unavailable | 13:30:07 | [facility] | | | | + + + + + + + + + | Result panel 165 | + + + + + +---------+ + + | | 2022-08-27 | [facility] | CLEAR | (missing) | (missing) | | (unavailable | 13:30:07 | [facility] | | | | + + + +---------+ + + + + | Result panel 166 | + + + + + +---------+ + + | | 2022-08-27 | [facility] | LARGE | (missing) | (missing) | | (unavailable | 13:30:07 [facility] | | | | + + + +---------+ + + + + | Result panel 167 | + + + + + + + + + | | 2022-08-27 | [facility] | NEGATIVE | (missing) | (missing) | | (unavailable | 13:30:07 [facility] | | | | + + + + + + + + + | Result panel 168 | + + + + + + + + + | | 2022-08-27 | [facility] | NEGATIVE | (missing) | (missing) | | (unavailable | 13:30:07 | [facility] | | | | + + + + + + + + + | Result panel 169 | + + + + + +---------+ + + | | 2022-08-27 | [facility] | 1.020 | (missing) | (missing) | | (unavailable | 13:30:07 | [facility] | | | | + + + +---------+ + + + + | Result panel 170 | + + + + + +---------+ + + | | 2022-08-27 | [facility] | LARGE | (missing) | (missing) | | (unavailable | 13:30:07 | [facility] | | | | + + + +---------+ + + + + | Result panel 171 | + + + + + +-------+ + + | | 2022-08-27 | [facility] | 6.5 | (missing) | (missing) | | (unavailable | 13:30:07 | [facility] | | | | + + + +-------+ + + + + | Result panel 172 | + + + + + +---------+ + + | | 2022-08-27 | [facility] | >=300 | (missing) | (missing) | | (unavailable | 13:30:07 [facility] | | | | + + + +---------+ + + + + | Result panel 173 | + + + + + +-------+ + + | | 2022-08-27 | [facility] | 1.0 | (missing) | (missing) | | (unavailable | 13:30:07 [facility] | | | | + + + +-------+ + + + + | Result panel 174 | + + + + + + + + + | | 2022-08-27 | [facility] | NEGATIVE | (missing) | (missing) | | (unavailable | 13:30:07 [facility] | | | | + + + + + + + + + | Result panel 175 | + + + + + +---------+ + + | | 2022-08-27 | [facility] | TRACE | (missing) | (missing) | | (unavailable | 13:30:07 [facility] | | | | + + + +---------+ + + + + | Result panel 176 | + + + + + +---------+ + + | | 2022-08-27 | [facility] | 21-40 | (missing) | (missing) | | (unavailable | 13:30:07 [facility] | | | | + + + +---------+ + + + + | Result panel 177 | + + + + + +-------+ + + | | 2022-08-27 | [facility] | 0-1 | (missing) | (missing) | | (unavailable | 13:30:07 [facility] | | | | + + + +-------+ + + + + | Result panel 178 | + + + + + +-----+ + + | | 2022-08-27 | [facility] | 0 | (missing) | (missing) | | (unavailable | 13:30:07 [facility] | | | | + + + +-----+ + + + + | Result panel 179 | + + + + + + + + + | | 2022-08-27 | [facility] | NONE SEEN | (missing) | (missing) | | (unavailable | 13:30:07 [facility] | | | | + + + + + + + + + | Result panel 180 | + + + + + + + + + | | 2022-08-27 | [facility] | NONE SEEN | (missing) | (missing) | | (unavailable | 13:30:07 [facility] | | | | + + + + + + + + + | Result panel 181 | + + + + + + + + + | | 2022-08-27 | [facility] | NONE SEEN | (missing) | (missing) | | (unavailable | 13:30:07 | [facility] | | | | + + + + + + + + + | Result panel 182 | + + + + + +------+ + + | | 2022-08-27 | [facility] | No | (missing) | (missing) | | (unavailable | 13:30:07 [facility] | | | | + + + +------+ + + + + | Result panel 183 | + + + + + + + + + | | 2022-08-27 | [facility] | CLEAN CATCH | (missing) | (missing) | | (unavailable | 13:30:07 | [facility] | | | | + + + + + + + + + | Result panel 184 | + + + + + +-------+---------+ + | | 2022-08-27 | [facility] | 418 | mg/dL | (missing) | | (unavailable | 13:30:07 [facility] | | | | + + + +-------+---------+ + + + | Result panel 185 | + + + + + +------+---------+ + | | 2022-08-27 | [facility] | 19 | mg/dL | (missing) | | (unavailable | 13:30:07 [facility] | | | | + + + +------+---------+ + + + | Result panel 186 | + + + + + +--------+---------+ + | | 2022-08-27 | [facility] | 1.25 | mg/dL | (missing) | | (unavailable | 13:30:07 [facility] | | | | + + + +--------+---------+ + + + | Result panel 187 | + + + + + +------+ + + | | 2022-08-27 | [facility] | 69 | (missing) | (missing) | | (unavailable | 13:30:07 [facility] | | | | + + + +------+ + + + + | Result panel 188 | + + + + + +---------+ + + | | 2022-08-27 | [facility] | 15.20 | (missing) | (missing) | | (unavailable | 13:30:07 [facility] | | | | + + + +---------+ + + + + | Result panel 189 | + + + + + +-------+ + + | | 2022-08-27 | [facility] | 127 | (missing) | (missing) | | (unavailable | 13:30:07 [facility] | | | | + + + +-------+ + + + + | Result panel 190 | + + + + + +-------+ + + | | 2022-08-27 | [facility] | 4.8 | (missing) | (missing) | | (unavailable | 13:30:07 [facility] | | | | + + + +-------+ + + + + | Result panel 191 | + + + + + +------+ + + | | 2022-08-27 | [facility] | 93 | (missing) | (missing) | | (unavailable | 13:30:07 [facility] | | | | + + + +------+ + + + + | Result panel 192 | + + + + + +------+ + + | | 2022-08-27 | [facility] | 27 | (missing) | (missing) | | (unavailable | 13:30:07 [facility] | | | | + + + +------+ + + + + | Result panel 193 | + + + + + +--------+ + + | | 2022-08-27 | [facility] | 11.8 | (missing) | (missing) | | (unavailable | 13:30:07 [facility] | | | | + + + +--------+ + + + + | Result panel 194 | + + + + + +-------+---------+ + | | 2022-08-27 | [facility] | 9.2 | mg/dL | (missing) | | (unavailable | 13:30:07 [facility] | | | | + + + +-------+---------+ + + + | Result panel 195 | + + + + + +--------+ + + | | 2022-09-03 | [facility] | 12.2 | (missing) | (missing) | | (unavailable | 17:52:07 [facility] | | | | + + + +--------+ + + + + | Result panel 196 | + + + + + +--------+ + + | | 2022-09-03 | [facility] | 72.6 | (missing) | (missing) | | (unavailable | 17:52:07 [facility] | | | | + + + +--------+ + + + + | Result panel 197 | + + + + + +--------+ + + | | 2022-09-03 | [facility] | 20.6 | (missing) | (missing) | | (unavailable | 17:52:07 [facility] | | | | + + + +--------+ + + + + | Result panel 198 | + + + + + +-------+ + + | | 2022-09-03 | [facility] | 6.3 | (missing) | (missing) | | (unavailable | 17:52:07 [facility] | | | | + + + +-------+ + + + + | Result panel 199 | + + + + + +-------+ + + | | 2022-09-03 | [facility] | 0.3 | (missing) | (missing) | | (unavailable | 17:52:07 [facility] | | | | + + + +-------+ + + + + | Result panel 200 | + + + + + +-------+ + + | | 2022-09-03 | [facility] | 0.2 | (missing) | (missing) | | (unavailable | 17:52:07 [facility] | | | + + + +-------+ + + + + | Result panel 201 | + + + + + +--------+ + + | | 2022-09-03 | [facility] | 4.06 | (missing) | (missing) | | (unavailable | 17:52:07 [facility] | | | + + + +--------+ + + + + | Result panel 202 | + + + + + +--------+ + + | | 2022-09-03 | [facility] | 10.0 | (missing) | (missing) | | (unavailable | 17:52:07 [facility] | | | + + + +--------+ + + + + | Result panel 203 | + + + + + +-------+---------+ + | | 2022-09-03 | [facility] | 173 | mg/dL | (missing) | | (unavailable | 17:52:07 [facility] | | | | + + + +-------+---------+ + + + | Result panel 204 | + + + + + +------+---------+ + | | 2022-09-03 | [facility] | 30 | mg/dL | (missing) | | (unavailable | 17:52:07 [facility] | | | | + + + +------+---------+ + + + | Result panel 205 | + + + + + +--------+---------+ + | | 2022-09-03 | [facility] | 1.09 | mg/dL | (missing) | | (unavailable | 17:52:07 [facility] | | | | + + + +--------+---------+ + + + | Result panel 206 | + + + + + +------+ + + | | 2022-09-03 | [facility] | 82 | (missing) | (missing) | | (unavailable | 17:52:07 [facility] | | | | + + + +------+ + + + + | Result panel 207 | + + + + + +---------+ + + | | 2022-09-03 | [facility] | 27.52 | (missing) | (missing) | | (unavailable | 17:52:07 [facility] | | | | + + + +---------+ + + + + | Result panel 208 | + + + + + +--------+ + + | | 2022-09-03 | [facility] | 31.2 | (missing) | (missing) | | (unavailable | 17:52:07 | [facility] | | | | + + + +--------+ + + + + | Result panel 209 | + + + + + +-------+ + + | | 2022-09-03 | [facility] | 128 | (missing) | (missing) | | (unavailable | 17:52:07 [facility] | | | | + + + +-------+ + + + + | Result panel 210 | + + + + + +-------+ + + | | 2022-09-03 | [facility] | 3.9 | (missing) | (missing) | | (unavailable | 17:52:07 | [facility] | | | | + + + +-------+ + + + + | Result panel 211 | + + + + + +------+ + + | | 2022-09-03 | [facility] | 96 | (missing) | (missing) | | (unavailable | 17:52:07 [facility] | | | | + + + +------+ + + + + | Result panel 212 | + + + + + +------+ + + | | 2022-09-03 | [facility] | 24 | (missing) | (missing) | | (unavailable | 17:52:07 [facility] | | | | + + + +------+ + + + + | Result panel 213 | + + + + + +--------+ + + | | 2022-09-03 | [facility] | 11.9 | (missing) | (missing) | | (unavailable | 17:52:07 [facility] | | | | + + + +--------+ + + + + | Result panel 214 | + + + + + +-------+---------+ + | | 2022-09-03 | [facility] | 8.6 | mg/dL | (missing) | | (unavailable | 17:52:07 | [facility] | | | | + + + +-------+---------+ + + + | Result panel 215 | + + + + + +-------+ + + | | 2022-09-03 | [facility] | 8.4 | (missing) | (missing) | | (unavailable | 17:52:07 [facility] | | | | + + + +-------+ + + + + | Result panel 216 | + + + + + +-------+ + + | | 2022-09-03 | [facility] | 1.7 | (missing) | (missing) | | (unavailable | 17:52:07 | [facility] | | | | + + + +-------+ + + + + | Result panel 217 | + + + + + +-------+ + + | | 2022-09-03 | [facility] | 6.7 | (missing) | (missing) | | (unavailable | 17:52:07 [facility] | | | | + + + +-------+ + + + + | Result panel 218 | + + + + + +--------+ + + | | 2022-09-03 | [facility] | 0.25 | (missing) | (missing) | | (unavailable | 17:52:07 | [facility] | | | | + + + +--------+ + + + + | Result panel 219 | + + + + + +--------+ + + | | 2022-09-03 | [facility] | 76.6 | (missing) | (missing) | | (unavailable | 17:52:07 | [facility] | | | | + + + +--------+ + + + + | Result panel 220 | + + + + + +-------+ + + | | 2022-09-03 | [facility] | 0.2 | (missing) | (missing) | | (unavailable | 17:52:07 | [facility] | | | | + + + +-------+ + + + + | Result panel 221 | + + + + + +------+ + + | | 2022-09-03 | [facility] | 27 | (missing) | (missing) | | (unavailable | 17:52:07 | [facility] | | | | + + + +------+ + + + + | Result panel 222 | + + + + + +------+ + + | | 2022-09-03 | [facility] | 27 | (missing) | (missing) | | (unavailable | 17:52:07 | [facility] | | | | + + + +------+ + + + + | Result panel 223 | + + + + + +-------+ + + | | 2022-09-03 | [facility] | 165 | (missing) | (missing) | | (unavailable | 17:52:07 | [facility] | | | | + + + +-------+ + + + + | Result panel 224 | + + + + + +-------+ + + | | 2022-09-03 | [facility] | 366 | (missing) | (missing) | | (unavailable | 17:52:07 | [facility] | | | | + + + +-------+ + + + + | Result panel 225 | + + + + + +--------+ + + | | 2022-09-03 | [facility] | 24.6 | (missing) | (missing) | | (unavailable | 17:52:07 | [facility] | | | | + + + +--------+ + + + + | Result panel 226 | + + + + + +--------+ + + | | 2022-09-03 | [facility] [facility] | 32.1 | (missing) | (missing) | | (unavailable | 17:52:07 | [facility] | | | | + + + +--------+ + + + + | Result panel 227 | + + + + + +--------+ + + | | 2022-09-03 | [facility] | 16.2 | (missing) | (missing) | | (unavailable | 17:52:07 | [facility] | | | | + + + +--------+ + + + + | Result panel 228 | + + + + + +-------+ + + | | 2022-09-03 | [facility] | 123 | (missing) | (missing) | | (unavailable | 17:52:07 | [facility] | | | | + + + +-------+ + + + + | Result panel 229 | + + + + + + + + + | | 2022-09-03 | [facility] | YELLOW | (missing) | (missing) | | (unavailable | 18:07:07 | [facility] | | | | + + + + + + + + + | Result panel 230 | + + + + + +---------+ + + | | 2022-09-03 | [facility] | CLEAR | (missing) | (missing) | | (unavailable | 18:07:07 | [facility] | | | | + + + +---------+ + + + + | Result panel 231 | + + + + + + + + + | | 2022-09-03 | [facility] | NEGATIVE | (missing) | (missing) | | (unavailable | 18:07:07 [facility] | | | | + + + + + + + + + | Result panel 232 | + + + + + + + + + | | 2022-09-03 | [facility] | NEGATIVE | (missing) | (missing) | | (unavailable | 18:07:07 [facility] | | | | + + + + + + + + + | Result panel 233 | + + + + + + + + + | | 2022-09-03 | [facility] | NEGATIVE | (missing) | (missing) | | (unavailable | 18:07:07 [facility] | | | | + + + + + + + + + | Result panel 234 | + + + + + +---------+ + + | | 2022-09-03 | [facility] | 1.025 | (missing) | (missing) | | (unavailable | 18:07:07 [facility] | | | | + + + +---------+ + + + + | Result panel 235 | + + + + + + + + + | | 2022-09-03 | [facility] | MODERATE | (missing) | (missing) | | (unavailable | 18:07:07 [facility] | | | | + + + + + + + + + | Result panel 236 | + + + + + +-------+ + + | | 2022-09-03 | [facility] | 6.0 | (missing) | (missing) | | (unavailable | 18:07:07 | [facility] | | | | + + + +-------+ + + + + | Result panel 237 | + + + + + +---------+ + + | | 2022-09-03 | [facility] | >=300 | (missing) | (missing) | | (unavailable | 18:07:07 [facility] | | | | + + + +---------+ + + + + | Result panel 238 | + + + + + +-------+ + + | | 2022-09-03 | [facility] | 1.0 | (missing) | (missing) | | (unavailable | 18::07 | [facility] | | | | + + + +-------+ + + + + | Result panel 239 | + + + + + + + + + | | 2022-09-03 | [facility] | NEGATIVE | (missing) | (missing) | | (unavailable | 18:07:07 [facility] | | | | + + + + + + + + + | Result panel 240 | + + + + + + + + + | | 2022-09-03 | [facility] | NEGATIVE | (missing) | (missing) | | (unavailable | 18:: | [facility] | | | | + + + + + + + + + | Result panel 241 | + + + + + +-------+ + + | | 2022-09-03 | [facility] | 2-3 | (missing) | (missing) | | (unavailable | 18:: | [facility] | | | | + + + +-------+ + + + + | Result panel 242 | + + + + + +---------+ + + | | 2022-09-03 | [facility] | 12-20 | (missing) | (missing) | | (unavailable | 18:07:07 [facility] | | | | + + + +---------+ + + + + | Result panel 243 | + + + + + +-----+ + + | | 2022-09-03 | [facility] | 0 | (missing) | (missing) | | (unavailable | 18:07:07 [facility] | | | | + + + +-----+ + + + + | Result panel 244 | + + + + + + + + + | | 2022-09-03 | [facility] | NONE SEEN | (missing) | (missing) | | (unavailable | 18:07:07 | [facility] | | | | + + + + + + + + + | Result panel 245 | + + + + + +--------+ + + | | 2022-09-03 | [facility] | RARE | (missing) | (missing) | | (unavailable | 18:07:07 [facility] | | | | + + + +--------+ + + + + | Result panel 246 | + + + + + + + + + | | 2022-09-03 | [facility] | NONE SEEN | (missing) | (missing) | | (unavailable | 18:07:07 [facility] | | | | + + + + + + + + + | Result panel 247 | + + + + + +-------+ + + | | 2022-09-03 | [facility] | Yes | (missing) | (missing) | | (unavailable | 18:07:07 [facility] | | | | + + + +-------+ + + + + | Result panel 248 | + + + + + + + + + | | 2022-09-03 | [facility] | CLEAN CATCH | (missing) | (missing) | | (unavailable | 18:07:07 | [facility] | | | | + + + + + + + Social History + + + + | date | description | facility | + + + + | 2022-07-13 00:00 | Unknown if ever smoked | [facility] | + + + + | 2022-07-26 00:00 | Unknown if ever smoked | [facility] | + + + + | 2022-08-27 00:00 | Unknown if ever smoked | [facility] | + + + + | 2022-09-03 00:00 | Unknown if ever smoked | [facility] | + + + + Vital Signs + + + +---------+ | date | measurement | value | units | + + + +---------+ | 2022-07-13 00:00 | BMI | 24.6 | kg/m2 | + + + +---------+ | 2022-07-13 00:00 | BP_diastolic | 82 | mmHg | + + + +---------+ | 2022-07-13 00:00 | BP_systolic | 143 | mmHg | + + + +---------+ | 2022-07-13 00:00 | heart_rate | 87 | /min | + + + +---------+ | 2022-07-13 00:00 | height_metric | 165.1 | cm | + + + +---------+ | 2022-07-13 00:00 | height_standard | 65 | in | + + + +---------+ | 2022-07-13 00:00 | o2_saturation | 98 | % | + + + +---------+ | 2022-07-13 00:00 | respiration_rate | 20 | /min | + + + +---------+ | 2022-07-13 00:00 | temperature_metric | 36.94 | C | | | | | | + + + +---------+ | 2022-07-13 00:00 | | 98.5 | F | | | temperature_standar | | | | | d | | | + + + +---------+ | 2022-07-13 00:00 | weight_metric | 67 | kg | + + + +---------+ | 2022-07-13 00:00 | weight_standard | 147.71 | lb | + + + +---------+ | 2022-07-23 00:00 | BMI | 24.7 | kg/m2 | + + + +---------+ | 2022-07-23 00:00 | height_metric | 165.1 | cm | + + + +---------+ | 2022-07-23 00:00 | height_standard | 65 | in | + + + +---------+ | 2022-07-23 00:00 | weight_metric | 67.4 | kg | + + + +---------+ | 2022-07-23 00:00 | weight_standard | 148.59 | lb | + + + +---------+ | 2022-07-26 00:00 | BP_diastolic | 80 | mmHg | + + + +---------+ | 2022-07-26 00:00 | BP_systolic | 134 | mmHg | + + + +---------+ | 2022-07-26 00:00 | heart_rate | 91 | /min | + + + +---------+ | 2022-07-26 00:00 | o2_saturation | 98 | % | + + + +---------+ | 2022-07-26 00:00 | respiration_rate | 18 | /min | + + + +---------+ | 2022-07-26 00:00 | temperature_metric | 36.78 | C | | | | | | + + + +---------+ | 2022-07-26 00:00 | | 98.2 | F | | | temperature_standar | | | | | d | | | + + + +---------+ | 2022-08-27 00:00 | BMI | 24.7 | kg/m2 | + + + +---------+ | 2022-08-27 00:00 | BP_diastolic | 86 | mmHg | + + + +---------+ | 2022-08-27 00:00 | BP_systolic | 123 | mmHg | + + + +---------+ | 2022-08-27 00:00 | heart_rate | 90 | /min | + + + +---------+ | 2022-08-27 00:00 | height_metric | 165.1 | cm | + + + +---------+ | 2022-08-27 00:00 | height_standard | 65 | in | + + + +---------+ | 2022-08-27 00:00 | o2_saturation | 99 | % | + + + +---------+ | 2022-08-27 00:00 | respiration_rate | 16 | /min | + + + +---------+ | 2022-08-27 00:00 | temperature_metric | 36.67 | C | | | | | | + + + +---------+ | 2022-08-27 00:00 | | 98 | F | | | temperature_standar | | | | | d | | | + + + +---------+ | 2022-08-27 00:00 | weight_metric | 67.44 | kg | + + + +---------+ | 2022-08-27 00:00 | weight_standard | 148.68 | lb | + + + +---------+ | 2022-08-27 00:00 | weight_standard | 148.69 | lb | + + + +---------+ | 2022-09-03 00:00 | BMI | 24.7 | kg/m2 | + + + +---------+ | 2022-09-03 00:00 | BP_diastolic | 82 | mmHg | + + + +---------+ | 2022-09-03 00:00 | BP_systolic | 122 | mmHg | + + + +---------+ | 2022-09-03 00:00 | heart_rate | 85 | /min | + + + +---------+ | 2022-09-03 00:00 | height_metric | 165.1 | cm | + + + +---------+ | 2022-09-03 00:00 | height_standard | 65 | in | + + + +---------+ | 2022-09-03 00:00 | o2_saturation | 99 | % | + + + +---------+ | 2022-09-03 00:00 | respiration_rate | 13 | /min | + + + +---------+ | 2022-09-03 00:00 | temperature_metric | 36.39 | C | | | | | | + + + +---------+ | 2022-09-03 00:00 | | 97.5 | F | | | temperature_standar | | | | | d | | | + + + +---------+ | 2022-09-03 00:00 | weight_metric | 67.44 | kg | + + + +---------+ | 2022-09-03 00:00 | weight_standard | 148.68 | lb | + + + +---------+ | 2022-09-03 00:00 | weight_standard | 148.69 | lb | + + + +---------+"
[~2022-12-28 16:40] MED LIST changes: +CEPHALEXIN500 M1 PO
--- OUTSIDE RECORDS SUMMARY | 2022-12-28 16:49 | XMS ---
PreManage Notification: TIGIST SMITH Security Record Clerk Events No recent Security Events currently on file CRITERIA MET - 6 ED Visits in 6 Months - [facility] - 3 Facilities in 90 Days CARE PROVIDERS Ana Mendoza Community Health Worker 09/15/2022-Current PHONE: [phone] -Aldair DMD Dentist: R&D Engineer Current PHONE: [phone] RASHID BARCENAS Physician Turbine Blade Assembler Current PHONE: Unknown LAKSHMI PEÑA Nurse Practitioner Current PHONE: Unknown Adalberto Bacon MD Family Medicine Current PHONE: Unknown Care Guidelines exist for the following facilities: [facility] ( 11/12/2018 ) Care History Medical/Surgical 04/06/2016 [facility] Care Coordination: This patient has been identified as having at least5 Emergency Departments visits in the 12 months immediately preceding the date these guidelines were entered. Patient requires education on appropriate ED usage. Emphasize the importance of using outpatient medical services for the treatment of chronic conditions. Please contact Community Health WorkerEarnestine at [phone] if patient is seen in ED These are guidelines and the provider should exercise clinical judgment when providing care. ERonaldo VISIT COUNT (12 MO.) 5 [facility] 5 [facility] [address] [place], [place] [address]Yo[facility] Rodriguez M.C[facility] TOTAL 12 NOTE: Visits indicate total known visits. ED/UCC VISIT TRACKING (12 MO.) 12/28/2022 16:41 [facility] TYPE: Emergency COMPLAINT: - FLANK PAIN 11/21/2022 08:41 [facility] [place] TYPE: Emergency DIAGNOSES: - Retention of urine, unspecified - Type 2 diabetes mellitus with hyperglycemia - urinary retention 10/29/2022 00:46 [facility] TYPE: Emergency DIAGNOSES: - cath issue [facility]24[facility]22 15[facility] DIAGNOSES: - Procedure and treatment not carried out due to patient leaving prior to being seen by health care provider - cath issue 09/14/2022 12:10 [facility] [place] TYPE: Emergency DIAGNOSES: - Hypo-osmolality and hyponatremia - Patient's noncompliance with other medical treatment and regimen due to unspecified reason - Pneumonia, unspecified organism - Type 2 diabetes mellitus with hyperglycemia - DIFFICULTY BREATHING 09/03/2022 17:36 [facility] [place] TYPE: Emergency COMPLAINT: - WEAKNESS DIAGNOSES: - Dehydration - Essential (primary) hypertension - residential (current) use of oral hypoglycemic drugs - Malingerer [conscious simulation] - Other snf (current) drug therapy - Other stimulant use, unspecified, uncomplicated - Type 2 diabetes mellitus with diabetic neuropathy, unspecified - Urinary tract infection, site not specified - Weakness 08/27/2022 13:04 [facility] [place] TYPE: Emergency COMPLAINT: - CATHETER PROBLEM DIAGNOSES: - Essential (primary) hypertension - residential (current) use of insulin - Other snf (current) drug therapy - Shortness of breath - Type 2 diabetes mellitus with hyperglycemia 08/18/2022 07:29 [facility] TYPE: Emergency DIAGNOSES: - Unspecified complication of genitourinary prosthetic device, implant and graft, initial encounter - CATHETER PROBLEM ABD PAIN 08/04/2022 06:51 [facility] [place] TYPE: Emergency DIAGNOSES: - Breakdown (mechanical) [...] - Unspecified abdominal pain 03/23/2022 17:51 [facility] [place] TYPE: Emergency DIAGNOSES: - [...] unspecified - Iron deficiency anemia, unspecified - residential (current) use of oral hypoglycemic drugs - residential (current) use of oral hypoglycemic drugs - Other local intermodal truck driver (current) drug therapy - Other snf (current) [...] Unspecified viral hepatitis C without hepatic coma [email or web address]
[2022-12-28 17:22] VITALS: BP 116/86
[2022-12-28 18:36] LABS: BILIRUBIN, URINE NEGATIVE (negative); BLOOD/HGB, URINE MODERATE (Negative); KETONE, URINE NEGATIVE (Negative); LEUK ESTERASE, URINE TRACE (negative); NITRITE, URINE NEGATIVE (negative)
[2022-12-28 18:42] LABS: BACTERIA, URINE 2+ /hpf (negative); CASTS, URINE NONE SEEN \\lpf; COLLECTION TYPE, URINE CLEAN CATCH; CRYSTALS, URINE NONE SEEN (0-1+); EPITHELIAL CELLS, URINE NONE SEEN /lpf (0-1+); REFLEX CULTURE, URINE Yes (No); WHITE BLOOD CELLS, URINE 41-50 /HPF (0-5)
== END 2022-12-28 18:45 | disposition other institution, planned readmission (95) ==
LOC: ED 16:40
PROVIDERS: Emergency Medicine
DX: R10.9 Unspecified abdominal pain (principal); Z53.21 Procedure and treatment not carried out due to patient leaving prior to being seen by health care provider; Z59.00 Homelessness unspecified; Z79.899 Other long term (current) drug therapy; Z79.4 Long term (current) use of insulin; Z79.84 Long term (current) use of oral hypoglycemic drugs
CPT/HCPCS: 81001; 87088

== ENCOUNTER 2023-09-09 18:40 | Emergency (ER) | payer OTHER ==
[~2023-09-09] VITALS: Ht 165.1 cm; Wt 60.0 kg
[~2023-09-09 18:40] MED LIST changes: +CIPRO250 MG PO; +GLIPIZIDE5 MG PO
[2023-09-09] MEDS ORDERED: ATORVASTATIN CA20 MG PO (19:06)
[2023-09-09] MEDS ORDERED: VRAYLAR1.5 MG PO (19:07)
[2023-09-09] MEDS ORDERED: AMLODIPINE BESY10 MG PO (19:08)
[2023-09-09] MEDS ORDERED: PRAMIPEXOLE D0.25 MG PO (19:10)
[2023-09-09 19:27] LABS: BASOPHILS 0.8 % (0-2); HEMATOCRIT 36.2 % (35.0-50.0); HEMOGLOBIN 12.2 g/dL (12.0-18.0); MCH 26.9 (27-36); MCHC 33.6 g/dl (30-36); MCV 80.1 fl (81-99); MONOCYTES 6.8 % (0-12); NEUTROPHILS 61.4 % (39-80); PLATELET COUNT 248 K/uL (140-440); RBC 4.52 M/ul (4.3-5.7); RDW 14.9 (10.5-15.0)
[2023-09-09] MEDS ORDERED: LORazepam 1 MG TAB PO ONE (19:30)
[2023-09-09 19:40] LABS: ACETAMINOPHEN 0 ug/mL (10-30); ALBUMIN 2.9 g/dL (3.4-5.0); ALCOHOL, MEDICAL <3 ng/dL (<3); ALKALINE PHOSPHATASE 137 U/L (46-116); ALT (SGPT) 23 U/L (14-59); ANION GAP 17.4 (7-21); AST (SGOT) 30 U/L (15-37); BILIRUBIN, TOTAL 0.3 ng/dL (0.2-1.0); BUN/CREATININE RATIO 17.69 (6.0-28.6); CALCIUM 8.7 mg/dL (8.5-10.1); CARBON DIOXIDE 23 mmol/L (21-32); CHLORIDE 100 mmol/L (98-107); CREATININE, SERUM 2.43 mg/dL (0.70-1.30); GLOMERULAR FILTRATION RATE,EST 31 mL/min (>60); POTASSIUM 4.4 mmol/L (3.5-5.1); PROTEIN, TOTAL 7.7 g/dL (6.4-8.2); SALICYLATE 1.5 mg/dL (2.8-20.0); TSH, 3RD GENERATION 0.379 uIU/mL (0.358-3.740); UREA NITROGEN 43 mg/dL (7-18)
[2023-09-09 20:18] LABS: BILIRUBIN, URINE POSITIVE (negative); BLOOD/HGB, URINE SMALL (Negative); KETONE, URINE NEGATIVE (Negative); LEUK ESTERASE, URINE SMALL (negative); NITRITE, URINE NEGATIVE (negative)
[2023-09-09 20:25] LABS: BACTERIA, URINE 2+ /hpf (negative); CASTS, URINE NONE SEEN \\lpf; COLLECTION TYPE, URINE CLEAN CATCH; CRYSTALS, URINE NONE SEEN (0-1+); EPITHELIAL CELLS, URINE 0 /lpf (0-1+); RED BLOOD CELLS, URINE 0-1 /hpf (0-5); REFLEX CULTURE, URINE Yes (No); WHITE BLOOD CELLS, URINE >50 /HPF (0-5)
[2023-09-09 20:32] LABS: AMPHETAMINES, URINE POSITIVE (NEGATIVE); BARBITURATES, URINE NEGATIVE (NEGATIVE); BENZODIAZEPINE, URINE NEGATIVE (NEGATIVE); BUPRENORPHINE, URINE NEGATIVE (NEGATIVE); CANNABINOID, URINE POSITIVE (NEGATIVE); COCAINE, URINE NEGATIVE (NEGATIVE); ECSTASY, URINE NEGATIVE (NEGATIVE); FENTANYL, URINE NEGATIVE (NEGATIVE); METHADONE, URINE NEGATIVE (NEGATIVE); OPIATES, URINE NEGATIVE (NEGATIVE); OXYCODONE, URINE NEGATIVE (NEGATIVE); PHENCYCLIDINE, URINE NEGATIVE (NEGATIVE)
[2023-09-09] MEDS ORDERED: diphenhydrAMINE HCL 50 MG/ML VIAL IM ONE (21:30)
[2023-09-09] MEDS ORDERED: HALOPERIDOL LACTATE 5 MG/ML VIAL IM ONE (21:30)
[2023-09-09] MEDS ORDERED: LORazepam 2 MG/ML VIAL IM ONE (21:30)
[2023-09-10 04:17] LABS: ANION GAP 12.2 (7-21); BUN/CREATININE RATIO 18.5 (6.0-28.6); CALCIUM 8.8 mg/dL (8.5-10.1); CREATININE, SERUM 2.27 mg/dL (0.70-1.30); POTASSIUM 4.2 mmol/L (3.5-5.1)
[2023-09-10] MEDS ORDERED: SODIUM CHLORIDE 0.9% 1,000 ML IV ONE (04:45)
[2023-09-10] MEDS ORDERED: SODIUM CHLORIDE 0.9% 1,000 ML IV PRN (05:00)
[2023-09-10 06:55] LABS: BUN/CREATININE RATIO 18.62 (6.0-28.6); CALCIUM 8.1 mg/dL (8.5-10.1); CREATININE, SERUM 2.04 mg/dL (0.70-1.30)
[2023-09-10] MEDS ORDERED: CEFDINIR 300 MG CAP PO SCH (09:00)
[2023-09-10] MEDS ORDERED: AMLODIPINE BESYLATE 10 MG TAB PO SCH (21:00)
[2023-09-10] MEDS ORDERED: metFORMIN HCL 500 MG TAB PO SCH (21:00)
[2023-09-10] MEDS ORDERED: TAMSULOSIN HCL 0.4 MG CAP PO SCH (21:00)
[2023-09-11 06:52] LABS: ANION GAP 13.9 (7-21); BUN/CREATININE RATIO 19.42 (6.0-28.6); CALCIUM 8.8 mg/dL (8.5-10.1); CREATININE, SERUM 1.39 mg/dL (0.70-1.30); POTASSIUM 3.9 mmol/L (3.5-5.1)
[2023-09-11] MEDS ORDERED: ED PATIENT'S OWN MED POCKET #2 XX PRN (12:00)
[2023-09-11] MEDS ORDERED: CARIPRAZINE HCL 1.5 MG CAPSULE PO SCH (12:30)
[2023-09-12 09:10] VITALS: BP 116/81
[2023-09-12] MEDS ORDERED: CEFDINIR300 MG PO (09:31)
== END 2023-09-12 09:10 | disposition home or self-care (01) ==
LOC: ED 18:40 → MS 09-11 06:38 → ED 09-12 09:10
PROVIDERS: Family Medicine
DX: N39.0 Urinary tract infection, site not specified (principal); E86.0 Dehydration; R45.851 Suicidal ideations; F15.90 Other stimulant use, unspecified, uncomplicated; E11.40 Type 2 diabetes mellitus with diabetic neuropathy, unspecified; I10 Essential (primary) hypertension; M79.7 Fibromyalgia; F32.A Depression, unspecified; N40.0 Benign prostatic hyperplasia without lower urinary tract symptoms; Z79.899 Other long term (current) drug therapy; Z79.84 Long term (current) use of oral hypoglycemic drugs
CPT/HCPCS: 36415; 80048; 80053; 80307; 81001; 82553; 84443; 85025; 87077; 87088; 87186; 96360; 99283-25; A9270-GY; G0480; J1200; J1630; J2060; J7030

== ENCOUNTER 2023-10-09 19:37 | Emergency (ER) | payer OTHER ==
[~2023-10-09] VITALS: Ht 165.1 cm; Wt 70.2 kg
[~2023-10-09 19:37] MED LIST changes: +AMLODIPINE BESY10 MG PO; +ATORVASTATIN CA20 MG PO; +CEFDINIR300 MG PO; +PRAMIPEXOLE D0.25 MG PO; +VRAYLAR1.5 MG PO
[2023-10-09 21:23] LABS: PH, VENOUS 7.344 (7.31-7.41)
[2023-10-09 21:28] LABS: BASOPHILS 0.7 % (0-2); EOSINOPHILS 6.3 % (0-6); HEMATOCRIT 30.6 % (35.0-50.0); HEMOGLOBIN 10.2 g/dL (12.0-18.0); LYMPHOCYTES 24.1 % (24-44); MCH 27.8 (27-36); MCHC 33.3 g/dl (30-36); MCV 83.6 fl (81-99); MONOCYTES 7.8 % (0-12); NEUTROPHILS 61.1 % (39-80); PLATELET COUNT 204 K/uL (140-440); RBC 3.66 M/ul (4.3-5.7)
[2023-10-09 21:54] LABS: ALBUMIN 3.2 g/dL (3.4-5.0); ALBUMIN/GLOBULIN RATIO 0.74 (1.1-2.4); ANION GAP 16.1 (7-21); BILIRUBIN, TOTAL 0.3 ng/dL (0.2-1.0); BUN/CREATININE RATIO 28.87 (6.0-28.6); CREATININE, SERUM 1.42 mg/dL (0.70-1.30); POTASSIUM 5.1 mmol/L (3.5-5.1); PROTEIN, TOTAL 7.5 g/dL (6.4-8.2)
[2023-10-09] MEDS ORDERED: TRAMADOL HCL50 MG PO (22:03)
[2023-10-09] MEDS ORDERED: DAPTOmycin 500 MG/10 ML VIAL IV ONE (22:15)
[2023-10-09] MEDS ORDERED: DOXYCYCLINE HYCLATE 100 MG HOME.PACK PO ONE (22:15)
[2023-10-09] MEDS ORDERED: TRAMADOL HCL 50 MG HOME.PACK PO ONE (22:15)
[2023-10-09 23:25] VITALS: BP 132/87
== END 2023-10-09 23:25 | disposition home or self-care (01) ==
LOC: ED 19:37
PROVIDERS: Family Medicine
DX: L03.116 Cellulitis of left lower limb (principal); I10 Essential (primary) hypertension; E11.40 Type 2 diabetes mellitus with diabetic neuropathy, unspecified; Z79.84 Long term (current) use of oral hypoglycemic drugs; Z79.899 Other long term (current) drug therapy
CPT/HCPCS: 36415; 73630; 80053; 82803; 83605; 85025; A9270; J0878

== ENCOUNTER 2023-10-18 14:58 | Emergency (ER) | payer OTHER ==
[~2023-10-18] VITALS: Ht 165.1 cm; Wt 70.3 kg
[~2023-10-18 14:58] MED LIST changes: +TRAMADOL HCL50 MG PO
[2023-10-18] MEDS ORDERED: DOXYCYCLINE HY100 MG PO (15:53)
[2023-10-18] MEDS ORDERED: CIPRO500 MG PO (15:53)
[2023-10-18 17:00] VITALS: BP 141/78
== END 2023-10-18 17:00 | disposition home or self-care (01) ==
LOC: ED 14:58
DX: E11.621 Type 2 diabetes mellitus with foot ulcer (principal); L97.521 Non-pressure chronic ulcer of other part of left foot limited to breakdown of skin; I10 Essential (primary) hypertension; E11.40 Type 2 diabetes mellitus with diabetic neuropathy, unspecified; Z79.84 Long term (current) use of oral hypoglycemic drugs; Z79.899 Other long term (current) drug therapy
CPT/HCPCS: 99283

== ENCOUNTER 2023-11-28 14:51 | Emergency (ER) | payer OTHER ==
[~2023-11-28] VITALS: Ht 165.1 cm; Wt 72.9 kg
[~2023-11-28 14:51] MED LIST changes: +CIPRO500 MG PO; +DOXYCYCLINE HY100 MG PO
[2023-11-28] MEDS ORDERED: LOSARTAN POTASS25 MG (15:03)
[2023-11-28] MEDS ORDERED: TRAZODONE HCL50 MG (15:03)
[2023-11-28] MEDS ORDERED: NICOTINE PATCH1 EACH TD (15:03)
[2023-11-28] MEDS ORDERED: GABAPENTIN300 MG PO (15:04)
[2023-11-28] MEDS ORDERED: MUPIROCIN 22 GM TUBE TOP ONE (15:30)
[2023-11-28 15:36] VITALS: BP 157/90
[2023-11-28] MEDS ORDERED: OLANZapine 10 MG TAB PO SCH (21:00)
== END 2023-11-28 15:36 | disposition home or self-care (01) ==
LOC: ED 14:51
DX: L03.031 Cellulitis of right toe (principal); I10 Essential (primary) hypertension; E11.40 Type 2 diabetes mellitus with diabetic neuropathy, unspecified; Z79.899 Other long term (current) drug therapy; Z79.84 Long term (current) use of oral hypoglycemic drugs
CPT/HCPCS: 99282

== ENCOUNTER 2024-01-15 11:13 | Emergency (ER) | payer OTHER ==
[~2024-01-15] VITALS: Ht 165.1 cm; Wt 68.4 kg
[~2024-01-15 11:13] MED LIST changes: +GABAPENTIN300 MG PO; +LOSARTAN POTASS25 MG; +NICOTINE PATCH1 EACH TD; +TRAZODONE HCL50 MG
[2024-01-15] MEDS ORDERED: IBLOOD GLUCOSE TEST STRIP 1 EA TEST XX ONE (12:15)
[2024-01-15 12:19] LABS: EOSINOPHILS 5.1 % (0-6); HEMATOCRIT 38.3 % (35.0-50.0); HEMOGLOBIN 12.8 g/dL (12.0-18.0); LYMPHOCYTES 43.6 % (24-44); MCH 28.3 (27-36); MCHC 33.4 g/dl (30-36); MCV 84.8 fl (81-99); MONOCYTES 4.9 % (0-12); NEUTROPHILS 45.4 % (39-80); PLATELET COUNT 265 K/uL (140-440); RBC 4.52 M/ul (4.3-5.7); RDW 14.4 (10.5-15.0)
[2024-01-15 12:31] LABS: ALBUMIN 3.4 g/dL (3.4-5.0); ALBUMIN/GLOBULIN RATIO 0.76 (1.1-2.4); ANION GAP 17.1 (7-21); BILIRUBIN, TOTAL 0.5 ng/dL (0.2-1.0); BUN/CREATININE RATIO 13.63 (6.0-28.6); CALCIUM 9.7 mg/dL (8.5-10.1); CREATININE, SERUM 1.98 mg/dL (0.70-1.30); POTASSIUM 4.1 mmol/L (3.5-5.1); PROTEIN, TOTAL 7.9 g/dL (6.4-8.2)
[2024-01-15 15:24] VITALS: BP 168/102
--- NOTE | 2024-01-15 22:27 | EKG ---
[facility] [address] [place] [address] Signed Normal sinus rhythm Normal ECG When compared with ECG of 12-DEC-2023 21:58, No significant change was found Confirmed by Moy Moscoso MD () on 01/15/2024 10:27:02 PM Electronically Signed By: MOY MOSCOSO MD 01/15/24 2227 PATIENT NAME: SARAHTIGIST KRISTIE Electrocardiogram DATE OF : 68 PHYSICIAN: MOY MOSCOSO MD REPORT #: [id number] REPORT IS CONFIDENTIAL AND NOT TO BE RELEASED WITHOUT AUTHORIZATION
== END 2024-01-15 15:26 | disposition home or self-care (01) ==
LOC: ED 11:13
PROVIDERS: Emergency Medicine
DX: E86.0 Dehydration (principal); I10 Essential (primary) hypertension; E11.319 Type 2 diabetes mellitus with unspecified diabetic retinopathy without macular edema; Z79.899 Other long term (current) drug therapy; Z79.84 Long term (current) use of oral hypoglycemic drugs
CPT/HCPCS: 36415; 71046; 80053; 83735; 84484; 85025; 93005; 93010; 99284-25

== ENCOUNTER 2025-01-07 16:20 | Emergency (ER) | payer OTHER ==
[~2025-01-07] VITALS: Ht 165.1 cm; Wt 66.9 kg
[2025-01-07 17:11] LABS: BASOPHILS 0.6 % (0.2-1.2); EOSINOPHILS 3.1 % (0.8-7.0); LYMPHOCYTES 28.9 % (21.8-53.1); MCH 26.5 PG (25.7-32.2); MCHC 33.0 g/dL (32.3-36.5); MCV 80.2 fL (79.0-92.2); MONOCYTES 10.3 % (5.3-12.2); NEUTROPHILS 56.9 % (34.0-67.9); RBC 3.93 M/uL (4.63-6.08)
[2025-01-07 17:22] LABS: ALT (SGPT) 14.0 U/L (14-59); AST (SGOT) 17.0 U/L (15-37); GLOMERULAR FILTRATION RATE,EST 39.0 mL/min (>60); PROTEIN, TOTAL 7.5 g/dL (6.4-8.2); UREA NITROGEN 36.0 mg/dL (7-18)
[2025-01-07 17:22] LABS: BLOOD/HGB, URINE SMALL (Negative); KETONE, URINE NEGATIVE (Negative); LEUK ESTERASE, URINE SMALL (negative); NITRITE, URINE NEGATIVE (negative)
[2025-01-07 17:29] LABS: BACTERIA, URINE NONE SEEN /hpf (negative); CASTS, URINE NONE SEEN \\lpf; CRYSTALS, URINE NONE SEEN (0-1+); EPITHELIAL CELLS, URINE NONE SEEN /lpf (0-1+); REFLEX CULTURE, URINE No (No)
[2025-01-07 17:37] LABS: AMPHETAMINES, URINE POSITIVE (NEGATIVE); BARBITURATES, URINE NEGATIVE (NEGATIVE); BENZODIAZEPINE, URINE NEGATIVE (NEGATIVE); CANNABINOID, URINE POSITIVE (NEGATIVE); COCAINE, URINE NEGATIVE (NEGATIVE); ECSTASY, URINE NEGATIVE (NEGATIVE); FENTANYL, URINE NEGATIVE (NEGATIVE); METHADONE, URINE NEGATIVE (NEGATIVE); OPIATES, URINE NEGATIVE (NEGATIVE); OXYCODONE, URINE NEGATIVE (NEGATIVE); PHENCYCLIDINE, URINE NEGATIVE (NEGATIVE)
[2025-01-07] MEDS ORDERED: LIDOCAINE 2% VISCOUS 6 ML SYR TOP ONE (17:45)
[2025-01-07] MEDS ORDERED: FLOMAX0.4 MG PO (19:06)
[2025-01-07] MEDS ORDERED: NORVASC10 MG PO (19:06)
[2025-01-07] MEDS ORDERED: TAMSULOSIN HCL 0.4 MG CAP PO ONE (19:15)
[2025-01-07] MEDS ORDERED: AMLODIPINE BESYLATE 10 MG TAB PO ONE (19:15)
[2025-01-07 20:07] VITALS: BP 133/89
== END 2025-01-07 19:55 | disposition home or self-care (01) ==
LOC: ED 16:20
PROVIDERS: Emergency Medicine
DX: R33.9 Retention of urine, unspecified (principal); I10 Essential (primary) hypertension; E11.9 Type 2 diabetes mellitus without complications
CPT/HCPCS: 36415; 51702; 51798; 80053; 80307; 81001; 83690; 85025; 99283-25

== ENCOUNTER 2025-01-09 19:08 | Emergency (ER) | payer OTHER ==
[~2025-01-09] VITALS: Ht 165.1 cm; Wt 66.9 kg
[~2025-01-09 19:08] MED LIST changes: +NORVASC10 MG PO
[2025-01-09 20:36] LABS: BLOOD/HGB, URINE LARGE (Negative); KETONE, URINE NEGATIVE (Negative); LEUK ESTERASE, URINE TRACE (negative); NITRITE, URINE POSITIVE (negative)
[2025-01-09 20:41] LABS: EPITHELIAL CELLS, URINE SQUAMOUS 1+ /lpf (0-1+)
[2025-01-09 20:42] LABS: BACTERIA, URINE 1+ /hpf (negative); CASTS, URINE NONE SEEN \\lpf; CRYSTALS, URINE NONE SEEN (0-1+); REFLEX CULTURE, URINE Yes (No)
[2025-01-09] MEDS ORDERED: MACROBID 100 M100 MG PO (20:50)
[2025-01-09] MEDS ORDERED: PYRIDIUM200 MG PO (20:50)
[2025-01-09] MEDS ORDERED: LIDOCAINE 2% VISCOUS 6 ML SYR TOP ONE (21:00)
[2025-01-09] MEDS ORDERED: NITROFURANTOIN MONOHYD MACROCR 100 MG HOME.PACK PO ONE (21:00)
[2025-01-09] MEDS ORDERED: PHENAZOPYRIDINE HCL 100 MG TAB PO ONE (21:00)
[2025-01-09 21:19] VITALS: BP 134/88
== END 2025-01-09 21:20 | disposition home or self-care (01) ==
LOC: ED 19:08
PROVIDERS: Family Medicine
DX: N39.0 Urinary tract infection, site not specified (principal); I10 Essential (primary) hypertension; E11.40 Type 2 diabetes mellitus with diabetic neuropathy, unspecified; N40.0 Benign prostatic hyperplasia without lower urinary tract symptoms; Z96.0 Presence of urogenital implants; Z79.899 Other long term (current) drug therapy
CPT/HCPCS: 81001; 87088; 99283